=== PATIENT | male | born 1955 | race Caucasian/White ===

== ENCOUNTER 2020-10-01 08:05 | Outpatient (CLI) | payer MEDICARE, SELFPAY ==
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
== END 2020-10-01 08:06 | disposition home or self-care (01) ==
LOC: ANHIMG 08:08
PROVIDERS: PCP Family Medicine; Visit Provider Internal Medicine Cardiovascular Disease
DX: I77.89 Other specified disorders of arteries and arterioles (principal)
CPT/HCPCS: 71250

== ENCOUNTER 2022-01-22 08:54 | Outpatient (CLI) | payer MEDICARE, SELFPAY ==
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
== END 2022-01-22 08:55 | disposition home or self-care (01) ==
PROVIDERS: PCP Family Medicine; Visit Provider Internal Medicine Cardiovascular Disease
DX: I77.89 Other specified disorders of arteries and arterioles (principal)
CPT/HCPCS: 71250

== ENCOUNTER 2022-04-11 15:30 | Emergency (ER) | payer MEDICARE, SELFPAY ==
[2022-04-11] VITALS (20 sets, daily range): BP systolic 113–140; BP diastolic 69–86; PULSE 78–87; RESP 10–19; TEMP 36.6; O2SAT 97–100
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
--- NOTE | 2022-04-11 16:25 | ECG_ITS ---
Measurements Intervals [place] Rate: 79 P: 72 MS: 153 QRS: 117 QRSD: 174 T: 76 QT: 411 QTc: 473 Interpretive Statements ATRIAL SENSE- ELECTRONIC VENTRICULAR PACEMAKER NO FURTHER INTERPRETATION IS POSSIBLE ATYPICAL ECG NO PREVIOUS ECG AVAILABLE FOR COMPARISON Electronically Signed On 04-11-2022 19:35:56 CDT by Antwan Simpson D.O.
[2022-04-11 16:45] LABS: Basophils Percent Auto 0.2 % (0.2-1.2); Eosinophils Absolute Auto 0.1 K/mm3 (0-0.3); Hematocrit 40.4 % (42.0-52.0); Hemoglobin 13.8 g/dL (14.0-18.0); Immature Granulocyte Absolute 0.01 K/mm3 (0.00-0.031); Immature Granulocyte Percent A 0.2 % (0-0.5); Immature Platelet Fraction Pct 9.6 % (0.9-11.2); Lymphocytes Absolute Auto 1.17 K/mm3 (0.9-3.2); Lymphocytes Percent Auto 25.8 % (18.3-44.2); Mean Corpuscular HGB Conc 34.2 g/dl (32-36); Mean Corpuscular Hemoglobin 29.4 pg (26-34); Mean Platelet Volume 11.8 fl (7.4-10.4); Monocytes Absolute Auto 0.4 K/mm3 (0.1-0.6); Monocytes Percent Auto 9.1 % (2.6-8.5); Neutrophils Absolute Auto 2.8 K/mm3 (1.3-6.7); Neutrophils Percent Auto 62.7 % (45.5-73.1); Platelet Count Result 119 k/mm3 (150-375); Red Cell Distribution Width 13.4 % (11.5-14.5); White Blood Count 4.5 K/mm3 (4.5-10.0)
[2022-04-11 16:52] LABS: Prothrombin Time 12.9 Seconds (11.1-14.7)
[2022-04-11 16:55] LABS: Alanine Aminotransferase 22 U/L (6-50); Albumin Level 4.2 g/dL (3.5-5.1); Alkaline Phosphatase 61 U/L (38-126); Anion Gap 8 mmol/L (8-16); Aspartate Amino Transferase 23 U/L (17-59); Bilirubin,Total 0.5 mg/dL (0.2-1.3); Blood Urea Nitrogen 15 mg/dL (9-20); Calcium 9.2 mg/dL (8.4-10.2); Carbon Dioxide 26 mmol/L (22-30); Chloride 103 mmol/L (98-107); Estimated CRCL calculation 71 ml/min; Estimated Glomerular Filt Rate > 60; Glucose 191 mg/dL (65-110); Potassium 4.3 mmol/L (3.4-5.0); Sodium 137 mmol/L (137-145)
[2022-04-11 17:06] LABS: Troponin I < 0.012 ng/mL (0.000-0.034)
--- NOTE | 2022-04-11 17:30 | ED.GENADULT ---
HPI - General Adult General Chief complaint: Unspecified <Brenna Domígnuez PA-C - Last Filed: 04/11/22 19:45> Stated complaint: defibrillator went off today at 1500 <Brenna Domínguez PA-C - Last Filed: 04/11/22 19:45> Time Seen by Provider: 04/11/22 17:18 <Brenna Domínguez PA-C - Last Filed: 04/11/22 19:45> Source: patient <MIKE Morrison Last Filed: 04/11/22 19:45> Mode of arrival: ambulatory <MIKE Morrison Last Filed: 04/11/22 19:45> Limitations: no limitations <MIKE Morrison Last Filed: 04/11/22 19:45> History of Present Illness HPI narrative: This is a 67-year-old male that presents to the emergency department for problems with his pacemaker. Reports at 3 this afternoon he heard his pacemaker go off. He did not feel a shock. He was not having any symptoms at this time. He had another occurrence at 4:00 this afternoon. He has not had any further alarming since. He denies any chest pain, palpitations or shortness of breath. 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 Reports he is due to have his battery exchanged before August. <Brenna Domínguez PA-C - Last Filed: 04/11/22 19:45> Related Data Allergies/adverse reactions: Allergies Allergy/AdvReac Type Severity Reaction Status Date / Time Penicillins Allergy Intermediate Verified 04/17/17 10:31 <Brenna Domínguez PA-C - Last Filed: 04/11/22 19:45> Review of Systems Review of Systems: CONSTITUTIONAL: Denies fever CARDIOVASCULAR: Denies chest pain, palpitations, or edema. RESPIRATORY: Denies dyspnea. <MIKE Morrison Last Filed: 04/11/22 19:45> All systems reviewed & are unremarkable except as noted in HPI and below <Brenna Domínguez PA-C - Last Filed: 04/11/22 19:45> [facility] Past Medical History Medical History: Medical History (Updated 04/13/22 @ 00:01 by Background Daemon) Diabetes Essential (primary) hypertension History of neuropathy Hyperlipidemia (04/17/17) <Brenna Domínguez PA-C - Last Filed: 04/11/22 19:45> Family History Family History: Family History (Updated 05/26/18 @ 00:00 by CONVUSER A) Father Family history of coronary artery disease <Brenna Domínguez PA-C - Last Filed: 04/11/22 19:45> Social History Social History: Social History Smoking status: Never smoker Alcohol intake: current <Brenna Domínguez PA-C - Last Filed: 04/11/22 19:45> Exam Narrative: GENERAL: Well-appearing, well-nourished, and in no acute distress. HEAD: Normocephalic, atraumatic. EYES: EOMI. CHEST: Clear to auscultation. No respiratory distress. No wheezes rales or rhonchi HEART: Regular rate and rhythm. No murmur heard. Normal peripheral pulses. EXTREMITIES: Normal range of motion. No edema. SKIN: Warm, dry, no rash. NEURO: No focal deficits. Alert and oriented x3. PSYCH: Normal mood and affect <Brenna Domínguez PA-C - Last Filed: 04/11/22 19:45> Course Course Emergency Course: Spoke with [employer] charter representative who reports patient had 1 anomalous lead impedance. Otherwise his trends are good. He still has 5 months left on his battery. Report will be sent to his assistant editor <Brenna Domínguez PA-C - Last Filed: 04/11/22 19:45> WELFARE ADVISER/PA Physician Supervision For this patient encounter, I reviewed the WELFARE ADVISER or PA documentation, treatment plan, and medical decision making. I was available for consultation as needed. <Molly Cortes MD - Last Filed: 04/25/22 16:11> Consultations Consultation #1: Spoke with Dr. Funes about patient and workup. Patient is stable to follow up in clinic <Brenna Domínguez PA-C - Last Filed: 04/11/22 19:45> Date: 04/11/22 <Brenna Domínguez PA-C - Last Filed: 04/11/22 19:45> Time: 19:41 <Brenna Domínguez PA-C - Last Filed: 04/11/22 19:45> Vital Signs Vital signs: Vital Signs Temperature 98 F 04/11/22 15:39 Pulse Rate 78 04/11/22 15:39 Respiratory Rate 14 04/11/22 1
--- NOTE | 2022-04-11 18:47 | PC.NURSE ---
PPM interrogated as ordered.
--- NOTE | 2022-04-11 19:29 | PC.NURSE ---
Patient report given to ANNY Coburn. All questions answered and care of patient transferred.
== END 2022-04-11 19:46 | disposition home or self-care (01) ==
PROVIDERS: Emergency Medicine; Emergency Provider Emergency Medicine; PCP Family Medicine
DX: T82.9XXA Unspecified complication of cardiac and vascular prosthetic device, implant and graft, initial encounter (principal); I10 Essential (primary) hypertension; E11.40 Type 2 diabetes mellitus with diabetic neuropathy, unspecified; E78.5 Hyperlipidemia, unspecified
CPT/HCPCS: 36415; 71046; 80053; 84484; 85025; 85055; 85610; 85730; 93005; 99284

== ENCOUNTER 2022-09-10 09:23 | Outpatient (CLI) | payer MEDICARE, SELFPAY ==
--- NOTE | ~2022-09-10 | US_ITS ---
EXAMINATION: US aorta [facility] DATE: 09/10/2022 12:25 INDICATION: TECHNIQUE: Grayscale, color Doppler, and pulsed Doppler images of the aorta and common iliac arteries were obtained. COMPARISON: None. FINDINGS: The aorta measures 2.8 cm proximally, 2.3 cm in the midportion, and 2.0 cm distally. The right common iliac artery 1.2. The left common iliac artery 1.2. IMPRESSION: 1. No current sonographic evidence of abdominal aortic aneurysm. 2. Mild proximal aortic ectasia. Consider follow-up abdominal aortic ultrasound in 5 years. Reviewed, dictated and finalized at location K. 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
== END 2022-09-10 09:24 | disposition home or self-care (01) ==
PROVIDERS: PCP Family Medicine; Visit Provider Family Medicine
DX: Z13.6 Encounter for screening for cardiovascular disorders (principal); I77.819 Aortic ectasia, unspecified site
CPT/HCPCS: 76706

== ENCOUNTER 2022-10-14 01:25 | Day surgery (SDC) | payer MEDICARE, SELFPAY ==
[2022-10-13 14:59] VITALS: BMI 31.8
--- NOTE | 2022-10-14 11:06 | PM.IMHP ---
H&P: HPI History of Present Illness Date/Time: 10/14/22 11:06 Chief Complaint: Bi V ICD at elective replacement, here for generator change Narrative: Mr. 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 Although his initial ejection fraction was 28%, he has had improvement and recent ejection fraction was 40%. He has had no ICD therapies applied. The generator is on advisory. Right atrial lead in place insisted client in 2018 is been stable since then running 95-114 Ohms. The right atrial sensing is appropriate any rarely paces in the right atrium. I have elected to leave the lead intact and to simply do a generator change. Review of Systems Review of Systems: Patient is feeling well today although he has noted some increased fatigue over the last few weeks. Some chronic MENDES and chronic edema. No chest pain or stomach problems. No fevers or signs of infection. Constitutional: Constitutional: Denies fever(s) Cardiovascular: Cardiovascular: Denies chest pain, Denies pedal edema, Denies lightheadedness and Denies dyspnea Respiratory: Respiratory: Denies chest congestion and Denies dyspnea Gastrointestinal: Gastrointestinal: Denies abdominal pain and Denies hematochezia Musculoskeletal: Musculoskeletal: Reports no additional musculoskeletal complaints Integumentary/Breasts: Skin/Breast: Reports system reviewed and no additional complaints, except as docu Neurologic: Reports system reviewed and no additional complaints, except as documented, Denies behavioral changes and Denies confusion Psychiatric: Psychiatric: Denies behavioral changes and Denies confusion [facility] Past Medical History Medical History Biventricular ICD (implantable cardioverter-defibrillator) in place [employer], acute initial device 2009, upgrade in 2014. Chronic decreased left atrial impedance CKD (chronic kidney disease) Diabetes Essential (primary) hypertension History of neuropathy Hyperlipidemia (04/17/17) Nonischemic cardiomyopathy 2009, ejection fraction was 28%. Improved to 40% 2020. KAMI (obstructive sleep apnea) Family History Family History Father Family history of coronary artery disease Social History Social History Smoking status: Former smoker Tobacco type: cigars Smokeless tobacco user: chewing tobacco Additional smoking assessment comments: occassional cigar, every now Alcohol intake: former Substance use: never Substance use type: does not use Living arrangements: with family Spiritual care concerns: No Meds Home Medications and Allergies Home Medications Medication Instructions Recorded Confirmed Type aspirin 81 mg tablet 81 mg PO DAILY 10/13/22 10/14/22 History cholecalciferol (vitamin D3) 250 10,000 unit PO DAILY 10/13/22 10/14/22 History mcg (10,000 unit) capsule furosemide 20 mg tablet 20 mg PO DAILY 10/13/22 10/13/22 History gabapentin 300 mg capsule 300 mg PO BID 10/13/22 10/14/22 History glipizide 5 mg tablet 5 mg PO BID 10/13/22 10/13/22 History loratadine 10 mg tablet 10 mg PO DAILY 10/13/22 10/14/22 History metformin 1,000 mg tablet 1,000 mg PO BID 10/13/22 10/13/22 History metoprolol succinate 100 mg 100 mg PO DAILY 10/13/22 10/14/22 History tablet,extended release 24 hr mirtazapine 15 mg tablet 15 mg PO HS 10/13/22 10/14/22 History montelukast 10 mg tablet 10 mg PO HS 10/13/22 10/14/22 History naproxen 500 mg tablet 500 mg PO BID PRN Neuropathy 10/13/22 10/14/22 History niacin 500 mg tablet 500 mg PO DAILY 10/13/22 10/14/22 History omega 8-wpb-yuu-fish oil 300 1 cap PO DAILY 10/13/22 10/14/22 History mg-1,000 mg capsule (Fish Oil) omeprazole 40 mg capsule,delayed 40 mg PO DAILY 10/13/22 10/14/22 Histo
[2022-10-14 11:07] VITALS: BMI 30.8
[2022-10-14 11:08] VITALS: BP 140/81; PULSE 72; RESP 16; TEMP 36.8; O2SAT 99
--- NOTE | 2022-10-14 11:14 | SUR.PREOP ---
DR. REYES TO BEDSIDE TO SPEAK W/ PT, AND DAUGHTER.
[2022-10-14 11:16] LABS: Basophils Percent Auto 0.2 % (0.2-1.2); Eosinophils Absolute Auto 0.1 K/mm3 (0-0.3); Eosinophils Percent Auto 1.4 % (0-4.4); Hematocrit 43.3 % (42.0-52.0); Hemoglobin 14.5 g/dL (14.0-18.0); Immature Granulocyte Absolute 0.01 K/mm3 (0.00-0.031); Immature Granulocyte Percent A 0.2 % (0-0.5); Immature Platelet Fraction Pct 7.8 % (0.9-11.2); Lymphocytes Absolute Auto 0.85 K/mm3 (0.9-3.2); Lymphocytes Percent Auto 19.8 % (18.3-44.2); Mean Corpuscular HGB Conc 33.5 g/dl (32-36); Mean Corpuscular Hemoglobin 28.4 pg (26-34); Mean Corpuscular Volume 84.9 fl (80-100); Mean Platelet Volume 11.9 fl (7.4-10.4); Monocytes Absolute Auto 0.4 K/mm3 (0.1-0.6); Monocytes Percent Auto 8.1 % (2.6-8.5); Neutrophils Percent Auto 70.3 % (45.5-73.1); Platelet Count Result 123 k/mm3 (150-375); Red Cell Distribution Width 13.2 % (11.5-14.5); White Blood Count 4.3 K/mm3 (4.5-10.0)
[2022-10-14 11:24] LABS: INR 1.1; Prothrombin Time 13.9 Seconds (11.1-14.7)
--- NOTE | 2022-10-14 11:25 | SUR.PREOP ---
chest prep to left upper chest with chlorhexidine wipes completed. tolerated well. skin warm, dry, intact, pink.
[2022-10-14 11:28] LABS: Anion Gap 8 mmol/L (8-16); Blood Urea Nitrogen 21 mg/dL (9-20); Calcium 8.9 mg/dL (8.4-10.2); Carbon Dioxide 25 mmol/L (22-30); Chloride 106 mmol/L (98-107); Estimated CRCL calculation 72 ml/min; Estimated Glomerular Filt Rate > 60; Glucose 241 mg/dL (65-110); Potassium 4.7 mmol/L (3.4-5.0); Sodium 139 mmol/L (137-145)
--- NOTE | 2022-10-14 11:31 | WPDMODSED ---
Moderate Sedation Note-Pt Data Patient Data Diagnosis: Bi V ICD pulse generator at elective replacement interval, on advisory Present Complaint: Mr. 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 Although his initial ejection fraction was 28%, he has had improvement and recent ejection fraction was 40%. He has had no ICD therapies applied. The generator is on advisory. Right atrial lead in place insisted client in 2018 is been stable since then running 95-114 Ohms. The right atrial sensing is appropriate any rarely paces in the right atrium. I have elected to leave the lead intact and to simply do a generator change. Procedure to be performed/Plan: Conscious sedation generator change Possible lead revision Allergies Allergy/AdvReac Type Severity Reaction Status Date / Time Penicillins Allergy Intermediate Unknown Verified 10/14/22 10:57 Home Medications Medication Instructions Recorded Confirmed Type aspirin 81 mg tablet 81 mg PO DAILY 10/13/22 10/14/22 History cholecalciferol (vitamin D3) 250 10,000 unit PO DAILY 10/13/22 10/14/22 History mcg (10,000 unit) capsule furosemide 20 mg tablet 20 mg PO DAILY 10/13/22 10/13/22 History gabapentin 300 mg capsule 300 mg PO BID 10/13/22 10/14/22 History glipizide 5 mg tablet 5 mg PO BID 10/13/22 10/13/22 History loratadine 10 mg tablet 10 mg PO DAILY 10/13/22 10/14/22 History metformin 1,000 mg tablet 1,000 mg PO BID 10/13/22 10/13/22 History metoprolol succinate 100 mg 100 mg PO DAILY 10/13/22 10/14/22 History tablet,extended release 24 hr mirtazapine 15 mg tablet 15 mg PO HS 10/13/22 10/14/22 History montelukast 10 mg tablet 10 mg PO HS 10/13/22 10/14/22 History naproxen 500 mg tablet 500 mg PO BID PRN Neuropathy 10/13/22 10/14/22 History niacin 500 mg tablet 500 mg PO DAILY 10/13/22 10/14/22 History omega 2-onp-ksj-fish oil 300 1 cap PO DAILY 10/13/22 10/14/22 History mg-1,000 mg capsule (Fish Oil) omeprazole 40 mg capsule,delayed 40 mg PO DAILY 10/13/22 10/14/22 History release sacubitril 24 mg-valsartan 26 mg 1 tablet PO BID 10/13/22 10/14/22 History tablet simvastatin 20 mg tablet 20 mg PO DAILY 10/13/22 10/14/22 History spironolactone 25 mg tablet 25 mg PO DAILY 10/13/22 10/13/22 History Sedation/Anesthesia: No previous sedation/anesthesia problems (including family history). [facility] Past Medical History Medical History Biventricular ICD (implantable cardioverter-defibrillator) in place [employer], acute initial device 2009, upgrade in 2014. Chronic decreased left atrial impedance CKD (chronic kidney disease) Diabetes Essential (primary) hypertension History of neuropathy Hyperlipidemia (04/17/17) Nonischemic cardiomyopathy 2009, ejection fraction was 28%. Improved to 40% 2020. KAMI (obstructive sleep apnea) Family History Family History Father Family history of coronary artery disease Social History Social History Smoking status: Former smoker Tobacco type: cigars Smokeless tobacco user: chewing tobacco Additional smoking assessment comments: occassional cigar, every now Alcohol intake: former Substance use: never Substance use type: does not use Living arrangements: with family Spiritual care concerns: No Mod Sed Physical Exam Physical Exam Pre Procedural Exam: Normal: Appearance, Eyes, Ears, Nose, Neck, Throat, Heart Size, Heart Rate, Heart Rhythm, Neuro Exam, Abdomen, Extremities and Skin ( incision is well healed) and Variation: Airway ( edentulous) and Lungs ( few rales in the bases) Hours since solid foods: 12 Hours since liquid intake: 12 Mallampati Classification: class IV Internal Medicine - PN: Obj Da Vital Signs Vital Signs:
--- NOTE | 2022-10-14 13:34 | PM.OP ---
Procedure Note - Brief Procedure Note - Brief Date of procedure: 10/14/22 Pre-op diagnosis: CLARY Post-op diagnosis: Other (Post generator change) Description of procedure: uneventful generator change Surgeon: Kena Timmons MD Complications: No immediate complications Condition: Stable Disposition: Observation
[2022-10-14 13:45] VITALS: BP 130/80; PULSE 82; RESP 29; O2SAT 94
--- NOTE | 2022-10-14 13:54 | P.OP_ITS ---
Procedure Note - Detailed Date of Procedure 10/14/22 Pre-op Diagnosis CLARY Post-op Diagnosis Other ( Status post generator change) Procedure Performed PROCEDURE: Conscious sedation Generator change Surgeon Kena Timmons MD Anesthesia Local (with conscious sedation) Description of Procedure UNDERLYING RHYTHM: NSR CONSCIOUS SEDATION: Assessment: The patient has no history of anesthesia problems. The oropharynx is clear. The patient was deemed to be a good candidate for conscious sedation. The patient had continuous hemodynamic and oximetric monitoring during the procedure. Start time: 1239 Completion time: 13 30 Total conscious sedation time: 51 minutes Medications: Versed 2 mg, fentanyl 100 mcg IV push Trained observer: Fiona Merida RN Outcome: The patient tolerated the procedure well with no complications. PROCEDURE: After informed consent, the patient is brought to the cardiac cath lab technologist and the left prepectoral area was prepped and draped in usual fashion. The patient was given a prophylactic antibiotic intravenously with vancomycin 2 g IV piggyback.. After conscious sedation as described above, the area was anesthetized with 1% lidocaine. A skin incision is made with the Plasma Blade and carried down to the pacing capsule which was also incised. Hemostasis is obtained using the Plasma Blade. The lead/s was/were freed from the underlying capsule and inspected and were found to be intact. The pulse generator was delivered from the pocket. The lead/s was/were disconnected from the existing device and Appear intact, thanreconnected to the new device. A gentle tug could not remove it/them. The device and lead/s was/were interrogated and found to be functioning appropriately. The area was copiously irrigated with antibiotic-containing solution. The device was placed in a TyRx antibiotic pouch, and replaced in the pocket. The subcutaneous tissues were closed in a two-layer fashion with interrupted 2 0 Vicryl sutures and the skin was closed in a continuous fashion using 4 0 Vicryl. Allthough hemostasis appeared good, the patient had some oozing. Local pressure was a applied over the site which seemed to stop the oozing. The area was cleansed, an Aquacel dressing and pressure dressing applied. The patient tolerated the procedure well with no complications. Estimated blood loss was negligible. THRESHOLD INFORMATION: Right atrial lead: P-wave 2.8 volts, impedance 57 Ohms, threshold 1.5 volts at 1.5 milliseconds Right ventricular lead: R-wave sensing 5.8 mV, impedance 361 Ohms, , threshold 0.75 at 0.4 milliseconds HVB: impedance 65 Ohms HVX impedance 93 Ohms Left ventricular lead: Threshold 1.0 volts at 1.0 milliseconds PROGRAMMED PARAMETERS: DDD 60-130, and VFib zone 200 millisecond intervals Implants DEVICE INFORMATION: New pulse generator: [employer] model [id number], serial [id number] [id number] Existing right atrial lead: [employer] model 5076-52, serial [id number] [id number] Existing right ventricular lead: [employer] model 229571, serial [id number] [id number] Existing left ventricular lead: [employer] model 661416, serial [id number] [id number] Explanted pulse generator: [employer] model [id number], serialBLF [id number] Estimated Blood Loss 10 (cc's) Complications No immediate complications Condition Stable Disposition Observation
[2022-10-14 14:00] VITALS: BP 130/69; PULSE 76; RESP 13; O2SAT 96
[2022-10-14 14:16] VITALS: BP 123/87; PULSE 75; RESP 12; O2SAT 97
[2022-10-14 15:00] VITALS: BP 129/87; PULSE 80; RESP 17
== END 2022-10-14 15:25 | disposition home or self-care (01) ==
PROVIDERS: PCP Family Medicine; Visit Provider Internal Medicine Cardiovascular Disease
PROC: 0JPT0PZ Removal of Cardiac Rhythm Related Device from Trunk Subcutaneous Tissue and Fascia, Open Approach (ICD-10-PCS; CPT 33264; principal; 2022-10-14 12:00)
DX: Z45.02 Encounter for adjustment and management of automatic implantable cardiac defibrillator (principal); I42.0 Dilated cardiomyopathy; I12.9 Hypertensive chronic kidney disease with stage 1 through stage 4 chronic kidney disease, or unspecified chronic kidney disease; E11.22 Type 2 diabetes mellitus with diabetic chronic kidney disease; N18.9 Chronic kidney disease, unspecified; E78.5 Hyperlipidemia, unspecified; G47.33 Obstructive sleep apnea (adult) (pediatric); E11.40 Type 2 diabetes mellitus with diabetic neuropathy, unspecified; Z79.82 Long term (current) use of aspirin; Z79.84 Long term (current) use of oral hypoglycemic drugs; F17.220 Nicotine dependence, chewing tobacco, uncomplicated
CPT/HCPCS: 33264; 36415; 80048; 85025; 85055; 85610; C1882; J2250; J3010; J3370; J7040

== ENCOUNTER 2023-08-05 12:08 | Outpatient (CLI) | payer MEDICARE, SELFPAY ==
--- NOTE | ~2023-08-05 | CT_ITS ---
EXAMINATION:CT diagnostic chest wo con DATE: 08/05/2023 12:25 INDICATION: Aortic root enlargement. TECHNIQUE: Computed tomography (CT) of the chest was performed without intravenous contrast. Automate d exposure control and iterative reconstruction technique were employed. The dose-length product (DLP ) was 916.59 mGy-cm. COMPARISON: Chest CT 01/22/2022 FINDINGS: The lungs demonstrate mild atelectasis. No pleural effusion. There are shrapnel in right kevin ng and right chest wall. There is left ventricular enlargement of the heart. There is a left chest pa cer with leads in right atrium, right ventricle, and coronary sinus. No pericardial effusion. The aor ta measures 4.5 cm at the sinuses of Valsalva, 3.6 cm at the sinotubular junction, 4.2 cm in the mid descending aorta, 2.9 cm at the aortic isthmus, and 2.9 cm in the mid descending aorta. There is suraj re cervical and thoracic spondylosis. IMPRESSION: 1. Stable ectasia of ascending aorta measuring 4.5 cm at the sinuses of Valsalva. Reviewed, dictated and finalized at location E. ASSESSOR IMPRESSION: 1. Stable ectasia of ascending aorta measuring 4.5 cm at the sinuses of Valsalv a.
== END 2023-08-05 12:09 | disposition home or self-care (01) ==
PROVIDERS: PCP Family Medicine; Visit Provider Internal Medicine Cardiovascular Disease
DX: I77.89 Other specified disorders of arteries and arterioles (principal)
CPT/HCPCS: 71250

== ENCOUNTER 2023-10-20 09:38 | Outpatient (CLI) | payer MEDICARE, SELFPAY ==
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
== END 2023-10-20 09:39 ==
PROVIDERS: PCP Internal Medicine Cardiovascular Disease; Visit Provider Internal Medicine Cardiovascular Disease
DX: I77.89 Other specified disorders of arteries and arterioles (principal)
CPT/HCPCS: 99199; 71250

== ENCOUNTER 2023-10-21 09:26 | Outpatient (CLI) | payer MEDICARE, SELFPAY ==
--- NOTE | ~2023-10-21 | CT_ITS ---
EXAMINATION: CT sinus wo con DATE: 10/21/2023 09:48 INDICATION: Headache. Sinus pressure. Subacute pansinusitis. TECHNIQUE: Computed tomography (CT) of the paranasal sinuses was performed without intravenous contra st. Iterative reconstruction technique was employed. The dose-length product was 272.05 mGy-cm. COMPARISON: None FINDINGS: There is mild mucosal thickening in the frontal sinuses. There is moderate mucosal thickeni ng in the right ethmoid sinuses and extensive mucosal thickening in the left ethmoid sinuses. There i s mucosal thickening in the sphenoid sinuses including complete opacification of left sphenoid sinus. There is thickening and sclerosis of the bentley of left sphenoid sinus. There is mild mucosal thicken ing in the maxillary sinuses. There is leftward deviation of the nasal septum with a left lateral spu r. There is narrowing of right ostiomeatal unit. Left ostiomeatal unit is occluded at the infundibulu m. There is freddie bullosa involving right middle turbinate. In the anterior wall of right maxillary sinus, there is a 6 mm nonaggressive lytic lesion with calcified matrix, likely benign. There are tra ce mastoid effusions. IMPRESSION: 1. Chronic sinusitis. 2. Leftward deviation of the nasal septum. Reviewed, dictated and finalized at location A.
== END 2023-10-21 09:27 ==
LOC: MICIMG 09:27
PROVIDERS: PCP Family Medicine; Visit Provider Family Medicine
DX: J01.40 Acute pansinusitis, unspecified (principal); G44.221 Chronic tension-type headache, intractable; J34.2 Deviated nasal septum
CPT/HCPCS: 70486

== ENCOUNTER 2023-10-30 13:10 | Emergency (ER) | payer MEDICARE, SELFPAY ==
--- NOTE | ~2023-10-30 | CT_ITS ---
EXAMINATION: CT brain wo/w con INDICATION: Headache, chronic sinusitis COMPARISON: 10/21/2023 TECHNIQUE: Computed tomographic images of the head were obtained prior to then following the administ ration of 100 cc of Omnipaque 350 intravenous contrast. The dose-length product (DLP) was 1210.67 mGy -cm. The mA was adjusted according to patient size. Iterative reconstruction technique was employed. FINDINGS: No acute intraparenchymal hemorrhage. No evidence of mass lesion. No evidence of acute infa rction. There is a tiny lacunar infarct of the left caudate. There is mild periventricular and subcor tical hypodensity probably related to small vessel ischemic disease. There is mild prominence of the sulci and ventricles related to cerebral atrophy. Intracranial calcified cerebral atherosclerosis is noted. No extra-axial collections. No mass effect or midline shift. The orbits and soft tissues are u nremarkable. No abnormal enhancement is present after contrast administration. Findings of the visual ized paranasal sinuses are not significantly changed from the recent sinus CT. Trace mastoid effusion s are noted. IMPRESSION: 1. No acute intracranial abnormality. 2. Age related findings. 3. Findings of the visualized paranasal sinuses not significantly changed from the recent sinus CT. N o intracranial extension of sinus disease. Reviewed, dictated and finalized at location F. IMPRESSION: 1. No acute intracranial abnormality. 2. Age related findings. 3. Findings of the visualized paranasal sinuses not significantly changed from the recent sinus CT. No intracranial extension of sinus disease.
[2023-10-30 13:17] VITALS: BP 114/75; PULSE 78; RESP 20; TEMP 36.7; O2SAT 100
[2023-10-30 15:43] LABS: Basophils Percent Auto 0.1 % (0.2-1.2); Eosinophils Absolute Auto 0.1 K/mm3 (0-0.3); Eosinophils Percent Auto 0.5 % (0-4.4); Hematocrit 35.6 % (42.0-52.0); Hemoglobin 11.3 g/dL (14.0-18.0); Immature Granulocyte Absolute 0.06 K/mm3 (0.00-0.031); Immature Granulocyte Percent A 0.5 % (0-0.5); Lymphocytes Absolute Auto 1.19 K/mm3 (0.9-3.2); Lymphocytes Percent Auto 10.8 % (18.3-44.2); Mean Corpuscular HGB Conc 31.7 g/dl (32-36); Mean Corpuscular Hemoglobin 28.2 pg (26-34); Mean Corpuscular Volume 88.8 fl (80-100); Mean Platelet Volume 11.3 fl (7.4-10.4); Monocytes Absolute Auto 0.6 K/mm3 (0.1-0.6); Monocytes Percent Auto 5.5 % (2.6-8.5); Neutrophils Absolute Auto 9.1 K/mm3 (1.3-6.7); Neutrophils Percent Auto 82.6 % (45.5-73.1); Platelet Count Result 171 k/mm3 (150-375); Red Blood Count 4.01 M/mm3 (4.6-6.20); Red Cell Distribution Width 15.5 % (11.5-14.5)
[2023-10-30 15:46] LABS: Appearance Urine Clear (Clear); Bacteria Urine None Seen /hpf; Bilirubin Urine Negative (Negative); Blood Urine Negative (Negative); Color Urine Yellow (Yellow); Glucose Urine UA 3+ mg/dL (Negative); Ketones Urine Negative (Negative); Leukocyte Esterase Ur Negative LEU/UL (Negative); Nitrate Urine Negative (Negative); Non Pathogenic Casts 0-2; Protein Urine 2+ mg/dL (Negative); RBC Urine 0-2 /hpf (0-2); Squamous Epithelial Cell Urine None Seen /hpf (Few); Urobilinogen Urine 0.2 mg/dL (<2.0); WBC Urine 0-5 /hpf (0-3)
[2023-10-30 15:48] LABS: Specific Grav Ur 1.039 (1.001-1.035)
[2023-10-30 15:49] LABS: Add Urine Microscopic? YES
[2023-10-30 15:55] LABS: Alanine Aminotransferase 42 U/L (6-50); Albumin Level 3.2 g/dL (3.5-5.1); Alkaline Phosphatase 119 U/L (38-126); Anion Gap 5 mmol/L (8-16); Aspartate Amino Transferase 37 U/L (17-59); Bilirubin,Total 0.4 mg/dL (0.2-1.3); Blood Urea Nitrogen 33 mg/dL (9-20); Calcium 8.8 mg/dL (8.4-10.2); Carbon Dioxide 19 mmol/L (22-30); Chloride 112 mmol/L (98-107); Estimated CRCL calculation 42 ml/min; Estimated Glomerular Filt Rate 47; Glucose 163 mg/dL (65-110); Potassium 5.2 mmol/L (3.4-5.0); Sodium 136 mmol/L (137-145)
--- NOTE | 2023-10-30 16:05 | PC.NURSE ---
pt angry and agitated, threatening verbally to staff. pt reminded that this behavior is not accepted here at this facility. explained delay in providers rounding to room. again agitated, telling staff to leave room if unable to fix his problems.
[2023-10-30 16:20] LABS: Influenza A QL RT-PCR Negative (Negative); Influenza B QL RT-PCR Negative (Negative); RSV RNA, RT-PCR Negative (Negative); SARS-CoV-2 RNA PCR Negative (Negative)
[2023-10-30 16:31] VITALS: BP 125/95; PULSE 72; RESP 16; TEMP 36.7; O2SAT 96
[2023-10-30 17:30] VITALS: BP 118/70; PULSE 76; RESP 16; TEMP 36.6; O2SAT 97
--- NOTE | 2023-10-30 17:38 | ED.HA ---
HPI - Headache General Chief Complaint: Headache Stated Complaint: SAUCEDA Time Seen by Provider: 10/30/23 16:02 Source: patient Mode of arrival: ambulatory Limitations: no limitations History of Present Illness HPI Narrative: This is a 68 year old male that presents to the ER for headache. Worsening over the last couple of days. Reports he has been struggling with headaches over the last month. Seen by ENT for this and diagnosed with chronic sinusitis. Started on prednisone and clindamycin. He has been taking these with little relief. He also has been doing sinus rinses, which he believes has worsened his headaches. He has been taking Tylenol and ibuprofen with little relief. Denies fevers, visual changes, vomiting, numbness, or focal weakness. Related Data Home Medications Medication Instructions Recorded Confirmed aspirin 81 mg tablet 81 mg PO DAILY 10/13/22 10/28/23 cholecalciferol (vitamin D3) 250 10,000 unit PO DAILY 10/13/22 10/28/23 mcg (10,000 unit) capsule furosemide 20 mg tablet 20 mg PO DAILY 10/13/22 10/28/23 gabapentin 300 mg capsule 300 mg PO BID 10/13/22 10/28/23 glipizide 5 mg tablet 5 mg PO BID 10/13/22 10/28/23 loratadine 10 mg tablet 10 mg PO DAILY 10/13/22 10/28/23 metoprolol succinate 100 mg 100 mg PO DAILY 10/13/22 10/28/23 tablet,extended release 24 hr mirtazapine 15 mg tablet 15 mg PO HS 10/13/22 10/28/23 montelukast 10 mg tablet 10 mg PO HS 10/13/22 10/28/23 naproxen 500 mg tablet 500 mg PO BID PRN Neuropathy 10/13/22 10/28/23 niacin 500 mg tablet 500 mg PO DAILY 10/13/22 10/28/23 omega 1-hwf-flf-fish oil 300 1 cap PO DAILY 10/13/22 10/28/23 mg-1,000 mg capsule (Fish Oil) omeprazole 40 mg capsule,delayed 40 mg PO DAILY 10/13/22 10/28/23 release sacubitril 24 mg-valsartan 26 mg 1 tablet PO BID 10/13/22 10/28/23 tablet simvastatin 20 mg tablet 20 mg PO DAILY 10/13/22 10/28/23 spironolactone 25 mg tablet 25 mg PO DAILY 10/13/22 10/28/23 Allergies Allergy/AdvReac Type Severity Reaction Status Date / Time Penicillins Allergy Intermediate Unknown Verified 10/30/23 13:23 Review of Systems Review of Systems: CONSTITUTIONAL: Denies fever EYES: Denies visual changes GASTROINTESTINAL: Denies vomiting NEUROLOGIC: Reports headache. Denies numbness, or weakness. All systems reviewed & are unremarkable except as noted in HPI and below PMFSH Past Medical History Medical History Biventricular ICD (implantable cardioverter-defibrillator) in place Medtr[employer], acute initial device 2009, upgrade in 2014. Chronic decreased left atrial impedance CKD (chronic kidney disease) Diabetes Essential (primary) hypertension History of neuropathy Hyperlipidemia (04/17/17) Nonischemic cardiomyopathy 2009, ejection fraction was 28%. Improved to 40% 2020. KAMI (obstructive sleep apnea) Family History Family History Father Family history of coronary artery disease Cancer Heart disease Social History Social History Smoking status: Former smoker Tobacco type: cigars Smokeless tobacco user: chewing tobacco Additional smoking assessment comments: occassional cigar, every now Alcohol intake: former Substance use: never Substance use type: does not use Living arrangements: with family Spiritual care concerns: No Exam Narrative: GENERAL: Well-appearing, well-nourished, and in no acute distress. HEAD: Normocephalic, atraumatic. EYES: PERRLA and EOMI. ENT: Nares clear, no rhinorrhea or epistaxis. Mucous membranes moist. Oropharynx without tonsillar hypertrophy exudate or other lesions. Bilateral TMs pearly porras non-bulging NECK: Supple. No adenopathy or masses. CHEST: Clear to auscultation. No respiratory distress. No wheezes rales or rhonchi HEART: Regular rate and rhythm. No murmur heard. Normal peripheral pulses. ABDOM
[2023-10-30] MEDS: SODIUM CHLORIDE 0.9% IV 500 ML 999 ML IV CONT (18:00)
[2023-10-30] MEDS: KETOROLAC 15 MG/ML VIAL (*BKC) IV PUSH (18:01)
[2023-10-30] MEDS: METOCLOPRAMIDE HCL INJ 10 MG/2 ML VIAL IV PUSH (18:01)
[2023-10-30] MEDS: diphenhydrAMINE HCl INJ 50 MG/ML VIAL 25 MG IV PUSH (18:02)
[2023-10-30 18:42] VITALS: BP 116/68; PULSE 74; RESP 16; TEMP 36.4; O2SAT 98
== END 2023-10-30 19:30 | disposition home or self-care (01) ==
PROVIDERS: Emergency Medicine; Emergency Provider Physician Assistant; PCP Family Medicine
DX: R51.9 Headache, unspecified (principal); E86.0 Dehydration; Z20.822 Contact with and (suspected) exposure to COVID-19; I12.9 Hypertensive chronic kidney disease with stage 1 through stage 4 chronic kidney disease, or unspecified chronic kidney disease; E11.22 Type 2 diabetes mellitus with diabetic chronic kidney disease; N18.9 Chronic kidney disease, unspecified; E11.40 Type 2 diabetes mellitus with diabetic neuropathy, unspecified; I42.8 Other cardiomyopathies; G47.33 Obstructive sleep apnea (adult) (pediatric); F17.210 Nicotine dependence, cigarettes, uncomplicated; Z95.810 Presence of automatic (implantable) cardiac defibrillator; Z79.84 Long term (current) use of oral hypoglycemic drugs; Z79.82 Long term (current) use of aspirin
CPT/HCPCS: 36415; 70470; 80053; 85025; 87637; 96361; 96374; 96375; 99284; J1200; J1885; J2765; J7040; Q9967

== ENCOUNTER 2023-11-09 11:48 | Outpatient (CLI) | payer MEDICARE, SELFPAY ==
--- NOTE | 2023-11-09 11:56 | ECG_ITS ---
Measurements Intervals Donora Rate: 92 P: 71 MA: 143 QRS: 244 QRSD: 170 T: 53 QT: 407 QTc: 506 Interpretive Statements ELECTRONIC VENTRICULAR PACEMAKER WITH 1 INTRINSIC PVC THAT APPEARS TO BE APPROPRIATELY SENSED ABNORMAL RHYTHM ECG WARNING: DATA QUALITY MAY AFFECT INTERPRETATION COMPARED TO ECG 04/11/2022 16:33:29 NO SIGNIFICANT CHANGE Electronically Signed On 11-09-2023 13:19:42 CDT by Damian Funes M.D.
[2023-11-09 13:03] LABS: Anion Gap 11 mmol/L (4-12); Blood Urea Nitrogen 23 mg/dL (9-20); Calcium 9.2 mg/dL (8.4-10.2); Carbon Dioxide 16 mmol/L (22-30); Chloride 107 mmol/L (98-107); Estimated Glomerular Filt Rate 51; Glucose 211 mg/dL (65-110); Potassium 4.2 mmol/L (3.4-5.0); Sodium 134 mmol/L (137-145)
== END 2023-11-09 11:49 | disposition home or self-care (01) ==
LOC: ANHSURGERY 11:53
PROVIDERS: Anesthesiology; PCP Family Medicine; Visit Provider Otolaryngology
DX: E11.9 Type 2 diabetes mellitus without complications (principal); Z01.818 Encounter for other preprocedural examination
CPT/HCPCS: 36415; 80048; 93005

== ENCOUNTER 2023-11-10 02:01 | Day surgery (SDC) | payer MEDICARE, SELFPAY ==
--- NOTE | 2023-11-05 13:41 | PC.NURSE ---
Report to the Outpatient Waiting Room, entrance under the green pavilion located off [facility], at time __1015 on date _11/10/23 . Planned Procedure Time:1215 . Time changes happen often and if your time is changed the preop area will call you the afternoon before. - You and your visitor will be asked to self-screen and do not enter if you have any COVID symptoms. - A mask is optional within the hospital at this time. Patients may have clear liquids (water, carbonated beverages, clear teas, apple juice) until 3 hours prior to surgery ( 9:15 AM)with a maximum of 20 ounces. - No food from midnight until time of surgery - Infants may have breast milk until 4 hours before surgery, infant formula 6 hours prior to surgery. - Children will be allowed to drink immediately following surgery. If applicable, please bring a bottle or sippy cup to assist with drinking. Juice, water, soda, and popsicles are readily available. For infants on formula, please bring formula the day of surgery. Pacifiers are allowed. Take the following medications with a SIP of water the morning of surgery: __DOXYCYCLINE ,GABAPENTIN,METOPROLOL,TOPIRAMATE DO NOT STOP ANY OF YOUR OTHER PRESCRIPTION MEDICATIONS PRIOR TO SURGERY ?EXCEPT THE FOLLOWING Medications to discontinue per physician ___WIFE STATES HOLD ASPIRIN.LAST DOSE 11/04/[address] BLEDSOE AND HOLD NAPROXEN 2 DAYS PRE OP PER DR BLEDSOE LAST DOSE 11/07/23 HOLD ALL VITAMINS 3 DAYS PRE OP .LAST DOSE 11/06/23 Please no make-up, nail nepali, hairspray, perfume, deodorant, or body powder the day of surgery. No jewelry (including any body piercings) or valuables the day of surgery, leave them at home. Please take a shower or bath the night before, or the morning of, surgery with an antibacterial soap. Wear comfortable, loose fitting clothing. Children are encouraged to wear pajamas. - Jewelry must be removed prior to entering the operating room. Rings and piercings that are not removed may be cut off. - The hospital will not accept responsibility for valuables. - Please leave all valuables, including medications, at home the day of surgery. If you are going home after surgery, a licensed hazardous materials tanker driver must drive you home. - NO public transportation without another adult if you receive anesthesia. - We recommend that an adult stay with you for 24 hours following discharge. - We also recommend that you do not drive, make important decision, drink alcoholic beverages, or take any drugs that were not prescribed by your health care provider for at least 24 hours after your discharge time Follow any additional instructions given to you from your surgeon. If you or anyone in your household have experienced Covid symptoms in the past week, please notify your surgeon or the nurse liaison at the phone number below for possible testing. Telephone instructions given to __WIFE ALLYSON and asked if any additional questions and then verbalized understanding. Patient advised to call surgeon office or pre surgery nurse liaison [phone] if any additional questions.
[2023-11-05 15:10] VITALS: BMI 29.7
--- NOTE | 2023-11-09 15:25 | PM.IMHP ---
H&P: HPI History of Present Illness Date/Time: 11/09/23 15:25 Chief Complaint: Fungal sinusitis chronic sinusitis septal deviation Narrative: planned procedure Review of Systems Review of Systems: All systems reviewed & are unremarkable except as noted in HPI and below [facility] Past Medical History Medical History Biventricular ICD (implantable cardioverter-defibrillator) in place [employer]tr[employer], acute initial device 2009, upgrade in 2014. Chronic decreased left atrial impedance CKD (chronic kidney disease) Diabetes Essential (primary) hypertension History of neuropathy Hyperlipidemia (04/17/17) Nonischemic cardiomyopathy 2009, ejection fraction was 28%. Improved to 40% 2020. KAMI (obstructive sleep apnea) Family History Family History Father Family history of coronary artery disease Cancer Heart disease Social History Social History Smoking status: Never smoker Tobacco type: cigars Smokeless tobacco user: chewing tobacco Additional smoking assessment comments: occassional cigar, every now Alcohol intake: former Substance use: never Substance use type: does not use Living arrangements: with family Spiritual care concerns: No Meds Home Medications and Allergies Home Medications Medication Instructions Recorded Confirmed Type aspirin 81 mg tablet 81 mg PO DAILY 10/13/22 11/05/23 History cholecalciferol (vitamin D3) 250 10,000 unit PO DAILY 10/13/22 11/05/23 History mcg (10,000 unit) capsule furosemide 20 mg tablet 20 mg PO DAILY 10/13/22 11/05/23 History gabapentin 300 mg capsule 300 mg PO BID 10/13/22 11/05/23 History glipizide 5 mg tablet 5 mg PO BID 10/13/22 11/05/23 History loratadine 10 mg tablet 10 mg PO DAILY 10/13/22 11/05/23 History metoprolol succinate 100 mg 100 mg PO DAILY 10/13/22 11/05/23 History tablet,extended release 24 hr mirtazapine 15 mg tablet 15 mg PO HS 10/13/22 11/05/23 History montelukast 10 mg tablet 10 mg PO HS 10/13/22 11/05/23 History naproxen 500 mg tablet 500 mg PO BID PRN Neuropathy 10/13/22 11/05/23 History niacin 500 mg tablet 500 mg PO DAILY 10/13/22 11/05/23 History omega 7-eup-wup-fish oil 300 1 cap PO DAILY 10/13/22 11/05/23 History mg-1,000 mg capsule (Fish Oil) omeprazole 40 mg capsule,delayed 40 mg PO DAILY 10/13/22 11/05/23 History release sacubitril 24 mg-valsartan 26 mg 1 tablet PO BID 10/13/22 11/05/23 History tablet simvastatin 20 mg tablet 20 mg PO DAILY 10/13/22 11/05/23 History spironolactone 25 mg tablet 25 mg PO DAILY 10/13/22 11/05/23 History metoclopramide HCl 5 mg tablet 5 mg PO Q6H PRN nausea and 10/30/23 11/05/23 Rx vomiting #14 tabs doxycycline hyclate 100 mg capsule 100 mg PO BID #20 caps 11/04/23 11/05/23 Rx empagliflozin 25 mg tablet 25 mg PO DAILY 11/05/23 11/05/23 History (Jardiance) linagliptin 5 mg tablet (Tradjenta) 5 mg PO DAILY 11/05/23 11/05/23 History topiramate 25 mg tablet 25 mg PO DAILY 11/05/23 11/05/23 History Allergies Allergy/AdvReac Type Severity Reaction Status Date / Time Penicillins Allergy Intermediate Unknown Verified 11/05/23 13:22 Exam Narrative: chronic sinuses septal deviation Assessment and Plan Assessment and plan (1) Freddie bullosa: Code(s): J34.89 - Other specified disorders of nose and nasal sinuses Status: Acute Assessment and Plan: OR for?bilateral image guided endoscopic maxillary antrostomies total ethmoidectomies frontal sinusotomies sphenoidotomy left sphenoidotomy with tissue removal right freddie bullosa resection possible middle turbinectomies septoplasty. Risks discussed bleeding infection damage to surrounding structures CSF leak brain brain damage change in vision or blindness septal perforation need further procedures failure to resolve symptoms. Damage
[2023-11-10] VITALS (7 sets, daily range): BP systolic 110–136; BP diastolic 59–83; PULSE 100–129; RESP 12–15; TEMP 36.3; O2SAT 97–100; BMI 28.1
--- NOTE | 2023-11-10 07:15 | WPDHPUPDATE1 ---
History and Physical Update Update Date/Time: 11/10/23 07:15 History and Physical has been reviewed, including an updated exam of the patient. There are NO changes in the patient's condition. Risks, benefits, and alternatives have been discussed and questions answered. Patient agrees to proceed with procedure.
[2023-11-10 10:26] LABS: Glucose Point of Care 165 mg/dl (65-105)
--- NOTE | 2023-11-10 12:32 | WPDANESEPPF ---
Anes - Initial Pre Proc Eval Procedure: Operation Date: 11/10/23 12:15 Proposed Procedures p Image Guided Bilateral Endoscopic Maxillary Antrostomy, Total Ethmoidectomy, Bilateral Frontal Sinusotomy, Right Sphenoidotomy, Left Sphenoidotomy with Tissue Removal, Right Tova Bullosa Resection, Possible Middle Turbinectomy - Eric Vidal MD s Endoscopic Septoplasty - Eric Vidal MD Date/Time: 11/10/23 12:32 Surgeon: Eric Vidal MD Pre Op Diagnosis: Chr Sinsusitis, Septal Dev, Conchabullosa Patient Data Age: 68 Gender: M Height: 1.73 m Weight: 83.9 kg Allergies Allergy/AdvReac Type Severity Reaction Status Date / Time Penicillins Allergy Intermediate Unknown Verified 11/10/23 10:42 Home Medications Medication Instructions Recorded Confirmed Type aspirin 81 mg tablet 81 mg PO DAILY 10/13/22 11/10/23 History cholecalciferol (vitamin D3) 250 10,000 unit PO DAILY 10/13/22 11/05/23 History mcg (10,000 unit) capsule furosemide 20 mg tablet 20 mg PO DAILY 10/13/22 11/05/23 History gabapentin 300 mg capsule 300 mg PO BID 10/13/22 11/10/23 History glipizide 5 mg tablet 5 mg PO BID 10/13/22 11/05/23 History loratadine 10 mg tablet 10 mg PO DAILY 10/13/22 11/05/23 History metoprolol succinate 100 mg 100 mg PO DAILY 10/13/22 11/10/23 History tablet,extended release 24 hr mirtazapine 15 mg tablet 15 mg PO HS 10/13/22 11/05/23 History montelukast 10 mg tablet 10 mg PO HS 10/13/22 11/05/23 History naproxen 500 mg tablet 500 mg PO BID PRN Neuropathy 10/13/22 11/10/23 History niacin 500 mg tablet 500 mg PO DAILY 10/13/22 11/05/23 History omega 8-hmq-zlm-fish oil 300 1 cap PO DAILY 10/13/22 11/05/23 History mg-1,000 mg capsule (Fish Oil) omeprazole 40 mg capsule,delayed 40 mg PO DAILY 10/13/22 11/05/23 History release sacubitril 24 mg-valsartan 26 mg 1 tablet PO BID 10/13/22 11/05/23 History tablet simvastatin 20 mg tablet 20 mg PO DAILY 10/13/22 11/05/23 History spironolactone 25 mg tablet 25 mg PO DAILY 10/13/22 11/05/23 History metoclopramide HCl 5 mg tablet 5 mg PO Q6H PRN nausea and 10/30/23 11/05/23 Rx vomiting #14 tabs doxycycline hyclate 100 mg capsule 100 mg PO BID #20 caps 11/04/23 11/10/23 Rx empagliflozin 25 mg tablet 25 mg PO DAILY 11/05/23 11/05/23 History (Jardiance) linagliptin 5 mg tablet (Tradjenta) 5 mg PO DAILY 11/05/23 11/05/23 History topiramate 25 mg tablet 25 mg PO DAILY 11/05/23 11/10/23 History Laboratory Tests 11/10/23 10:23 POC Capillary Glucose 165 H mg/dl (65-105) Patient hx anesthesia problems: none Family hx anesthesia problems: none Results Review: All pre-operative results and documents have been reviewed as part of the pre-operative evaluation. [facility] Past Medical History Medical History Biventricular ICD (implantable cardioverter-defibrillator) in place Medtronic, acute initial device 2009, upgrade in 2014. Chronic decreased left atrial impedance CKD (chronic kidney disease) Diabetes Essential (primary) hypertension History of neuropathy Hyperlipidemia (04/17/17) Nonischemic cardiomyopathy 2009, ejection fraction was 28%. Improved to 40% 2020. KAMI (obstructive sleep apnea) Family History Family History Father Family history of coronary artery disease Cancer Heart disease Social History Social History Smoking status: Never smoker Tobacco type: cigars Smokeless tobacco user: chewing tobacco Additional smoking assessment comments: occassional cigar, every now Alcohol intake: former Substance use: never Substance use type: does not use Living arrangements: with family Spiritual care concerns: No Anes - Eval Final PreProcedure Day of Procedure 11/10/23 12:32 Patient weight: overweight Heart: regular rate and rhythm Lungs: decreased mino
[2023-11-10] MEDS: ACETAMINOPHEN 500 MG TABLET 1000 MG PO (12:57)
[2023-11-10] MEDS: LACTATED RINGERS 1,000 ML 30 ML IV CONT ×2 (13:00→16:40)
--- NOTE | 2023-11-10 13:01 | SUR.PREOP ---
Discussedd continued delay with patient and his .
[2023-11-10] MEDS: ceFAZolin 2 GM/D5W 50 ML 2 GM/50 ML BAG IVPB (13:55)
[2023-11-10] MEDS: MUPIROCIN 2% OINT 22 GM TUBE 1 APPLIC EACH NARE (14:16)
[2023-11-10] MEDS: OXYMETAZOLINE HCL 0.05% NAS 15 ML BTL (*BKC) 1 SPRAY NASAL (14:16)
[2023-11-10] MEDS: LIDO 1%/EPINEPHRINE 1:100,000 20 ML VIAL INFILTRATE (14:17)
--- NOTE | 2023-11-10 16:56 | P.OP_ITS ---
Procedure Note - Detailed Date of Procedure 11/10/23 Pre-op Diagnosis Chr Sinsusitis, Septal Dev, Conchabullosa , fungal sinusitis, Post-op Diagnosis Same Procedure Performed Right-sided endoscopic image guided freddie bullosa resection left-sided sphenoidotomy with tissue removal bilateral image guided maxillary antrostomies total ethmoidectomies frontal sinusotomy right-sided sphenoidotomy endoscopic assisted septoplasty. Surgeon Eric Vidal MD Anesthesia General Findings fungus spreading out of the sphenoid dehiscent optic nerve edematous polypoid tissue all the aforementioned sinuses thick mucus severely deviated leftward septum minimal bleeding good procedure Description of Procedure patient identified consent verified preop. Patient brought operating. Time- out. General anesthesia induced endotracheal tube secured airway patient prepped draped position procedure confirmed 2nd time-out performed. Image guidance initiated confirmed. Afrin-soaked pledgets placed for 5 minutes then removed. Total 15 cc 1% lidocaine with [id number] epi injected bilateral nasal septum. Timur incision made left-sided left nasal septal flap elevated. Osteotome utilized crossover right nasal septal flap elevated deviated septum removed with osteotome Estrada Infante forceps Osiris forceps. Only tears over the left side where there was a big spur. [place] incision closed interrupted 5 0 fast gut sutures. Maxillary antrostomies performed with double ball tip probes backbiter straight through cut image guidance and microdebrider total ethmoids performed with Kerrison microdebrider and image guidance. Sinusotomies performed with sphenoid punch Kerrison microdebrider image guidance left side had diffuse fungal tissue pouring out this was washed out with copious amounts sterile normal saline no fungal tissue remained frontal sinusotomies performed with guidance frontal sinus suction seeker Marissa Perez and rad 60 microdebrider. Wound copiously irrigated Nova pack placed bilateral operative cavity Page splints placed sutured anteriorly using a 3-0 mattress nylon suture. Of note right freddie was resected with straight through cut and microdebrider. Patient tolerated the procedure very well no complications blood loss 25 cc. I performed all dictated portions procedure care the patient given Anesthesiology no complications patient taken to PACU. Estimated Blood Loss 25 Drains No Packing Yes ( Nova pack) Pathology None sent Complications No immediate complications Condition Stable Disposition PACU [facility] Billing Surgery - Charge Forward: Surgery Billing
[2023-11-10 17:31] LABS: Glucose Point of Care 111 mg/dl (65-105)
== END 2023-11-10 18:35 | disposition home or self-care (01) ==
PROVIDERS: PCP Family Medicine; Visit Provider Otolaryngology
PROC: (CPT 31256; principal; 2023-11-10 12:15)
PROC: (CPT 30520; 2023-11-10 12:15)
DX: J32.9 Chronic sinusitis, unspecified (principal); B48.8 Other specified mycoses; J34.2 Deviated nasal septum; J33.8 Other polyp of sinus; J34.89 Other specified disorders of nose and nasal sinuses; H47.092 Other disorders of optic nerve, not elsewhere classified, left eye; Z95.810 Presence of automatic (implantable) cardiac defibrillator; I12.9 Hypertensive chronic kidney disease with stage 1 through stage 4 chronic kidney disease, or unspecified chronic kidney disease; E11.22 Type 2 diabetes mellitus with diabetic chronic kidney disease; N18.9 Chronic kidney disease, unspecified; E78.5 Hyperlipidemia, unspecified; I42.8 Other cardiomyopathies; G47.33 Obstructive sleep apnea (adult) (pediatric); F17.220 Nicotine dependence, chewing tobacco, uncomplicated; Z79.82 Long term (current) use of aspirin; Z79.84 Long term (current) use of oral hypoglycemic drugs
CPT/HCPCS: 31256; 31257; 31276; 61782; 31240; 30520; 36415; 80048; 82948; 93005; A9270; J0690; J2250; J2405; J2704; J3010; J7120

== ENCOUNTER 2023-11-17 10:10 | Emergency (ER) | payer MEDICARE, SELFPAY ==
[2023-11-17] VITALS (9 sets, daily range): BP systolic 76–120; BP diastolic 59–80; PULSE 73–91; RESP 14–18; TEMP 36.3–37.2; O2SAT 92–99
--- NOTE | ~2023-11-17 | CT_ITS ---
EXAMINATION: CT brain wo/w con, CT orbit BI w con DATE: 11/17/2023 11:09 INDICATION: Recent sinus surgery with vision loss in the right eye TECHNIQUE: 1. Computed tomography (CT) of the head was performed without and with 100 mL Omnipaque-350 intraveno us contrast. Sagittal and coronal reconstructions were performed. The mA was adjusted according to pa tient size. Iterative reconstruction technique was employed. The dose-length product was 605.33 mGy-c m. 2. CT of the orbits was performed without and with the identical 100 mL Omnipaque 350 intravenous con trast bolus. Sagittal and coronal reconstructions were performed. Automated exposure control and iter ative reconstruction technique were employed. The dose-length product was 214.77 mGy-cm. COMPARISON: Sinus CT dated 10/21/[address] dated 10/30/2023 FINDINGS: No acute intracranial hemorrhage, acute infarction or abnormal extra axial fluid collection. Unchange d mild scattered white matter hypoattenuation consistent with chronic small vessel ischemic disease. Symmetric prominence of the sulci and subarachnoid spaces overlying the convexities consistent with m ild age-appropriate diffuse cerebral volume loss. Ventricles are normal and symmetric. No mass/mass effect. No abnormally enhancing brain lesions. Right vertebral artery is dominant. Bilateral mastoid air cells and middle ear cavities are clear. Postoperative changes of bilateral antral window procedures with resection of portions of the medial bentley of both the left and right maxillary sinuses, partial resection of a right middle turbinate con eddie bullosa and partial ethmoidectomies with resection of multiple osseous septations along the infer ior aspect of the bilateral ethmoid sinuses. There has also been interval resection of the anterior w all of the right sphenoid sinus. The anterior wall of the left sphenoid sinus remains absent with per sistent complete opacification of the left sphenoid sinus which demonstrates irregular thickened scle rotic bentley consistent with likely chronic sinusitis. There has been some progression of prominent mu cosal thickening in the right sphenoid and bilateral maxillary and ethmoid sinuses now extending into the bilateral frontoethmoidal recesses. There are regions where the linear calcific density of the lamina papyracea on both the left and righ t becomes nearly indiscernible and could not absolutely exclude dehiscence. The intraorbital contents however appear normal bilaterally with intact appearing globes and no evident abnormally enhancing l esions or abnormal fat stranding within the intraorbital fat. Similarly there small region with essen tially indiscernible calcific density along the cribriform plate along the roof of the left and right ethmoid sinuses and focal dehiscence is not excludable although there is no evident underlying absce ss or other evident calvarial extension of disease. A similar small region of equivocal cortical inte grity is seen at the posterosuperior aspect of the posterior most left ethmoid sinus which includes a portion of the floor of the bilateral orbital canals and the anterior wall of the ophthalmic portion of the left internal carotid canal. On the right there is a similar region of potential osseous dest ruction since involving the bentley of the posterior most right ethmoid air cell and adjacent anterolat eral wall of the right sphenoid sinus which abut the right pterygoid palatine fossa. There does appea r to be asymmetric increased soft tissue density replacing the fat attenuation within the right ptery gopalatine fossa. The suprasellar cistern appears normal with no evident aneurysm or other abnormal m asses. IMPRESSION: 1. No acute intracranial process. 2. Postoperative changes in the bilateral paranasal sinuses including bilateral antral window procedu res, partial resection of a right middle turbinate freddie bullosa and interval resection of
[2023-11-17 10:44] LABS: Basophils Percent Auto 0.1 % (0.2-1.2); Eosinophils Percent Auto 0.1 % (0-4.4); Hematocrit 35.6 % (42.0-52.0); Hemoglobin 11.2 g/dL (14.0-18.0); Immature Granulocyte Absolute 0.04 K/mm3 (0.00-0.031); Immature Granulocyte Percent A 0.4 % (0-0.5); Lymphocytes Absolute Auto 1.04 K/mm3 (0.9-3.2); Lymphocytes Percent Auto 9.1 % (18.3-44.2); Mean Corpuscular HGB Conc 31.5 g/dl (32-36); Mean Corpuscular Hemoglobin 28.1 pg (26-34); Mean Corpuscular Volume 89.2 fl (80-100); Mean Platelet Volume 11.6 fl (7.4-10.4); Monocytes Absolute Auto 0.8 K/mm3 (0.1-0.6); Monocytes Percent Auto 6.7 % (2.6-8.5); Neutrophils Absolute Auto 9.6 K/mm3 (1.3-6.7); Neutrophils Percent Auto 83.6 % (45.5-73.1); Platelet Count Result 186 k/mm3 (150-375); Red Blood Count 3.99 M/mm3 (4.6-6.20); Red Cell Distribution Width 14.7 % (11.5-14.5); White Blood Count 11.4 K/mm3 (4.5-10.0)
[2023-11-17 10:54] LABS: Prothrombin Time 13.9 Seconds (11.1-14.7)
[2023-11-17 10:54] LABS: Estimated CRCL calculation 48 ml/min; Estimated Glomerular Filt Rate 55
[2023-11-17 10:57] LABS: Alanine Aminotransferase 27 U/L (6-50); Albumin Level 3.7 g/dL (3.5-5.1); Alkaline Phosphatase 121 U/L (38-126); Anion Gap 8 mmol/L (4-12); Aspartate Amino Transferase 36 U/L (17-59); Bilirubin,Total 0.6 mg/dL (0.2-1.3); Blood Urea Nitrogen 27 mg/dL (9-20); Calcium 9.3 mg/dL (8.4-10.2); Carbon Dioxide 22 mmol/L (22-30); Chloride 103 mmol/L (98-107); Estimated CRCL calculation 48 ml/min; Estimated Glomerular Filt Rate 55; Glucose 214 mg/dL (65-110); Potassium 4.3 mmol/L (3.4-5.0); Sodium 133 mmol/L (137-145)
--- NOTE | 2023-11-17 13:41 | ED.EYEPROB ---
HPI - Eye Problem General Chief complaint: Eye Problems Stated complaint: sent from eye dr, concern for orbital hemorrhage Time Seen by Provider: 11/17/23 10:34 Source: patient and family Mode of arrival: ambulatory Limitations: no limitations History of Present Illness HPI Narrative: 68-year-old with a history of hypertension, CKD, diabetes was brought in by his with the complaints of visual loss. Patient states that he had sinus surgery on 11/10/2023 here at [facility] 2 days after the surgery she has states that he lost his vision in the left side, was seen by ENT and was recommended to go to Ophthalmology and he was started on steroids at that time. However patient states that his having visual changes in the right eye as well for the past 2 days. Patient was seen earlier [facility] in [place] , he had eye drops in both eyes , was advised to go to the ER for CT scan . Patient presently denies having any headache, nausea or vomiting. MD chief complaint: vision change Onset (ago): week(s) (1) Onset description: gradual Duration: constant Location: both eyes Eye Symptoms: decreased vision Severity: severe Associated symptoms: none Related Data Home Medications Medication Instructions Recorded Confirmed aspirin 81 mg tablet 81 mg PO DAILY 10/13/22 11/16/23 cholecalciferol (vitamin D3) 250 10,000 unit PO DAILY 10/13/22 11/16/23 mcg (10,000 unit) capsule furosemide 20 mg tablet 20 mg PO DAILY 10/13/22 11/16/23 gabapentin 300 mg capsule 300 mg PO BID 10/13/22 11/16/23 glipizide 5 mg tablet 5 mg PO BID 10/13/22 11/16/23 loratadine 10 mg tablet 10 mg PO DAILY 10/13/22 11/16/23 metoprolol succinate 100 mg 100 mg PO DAILY 10/13/22 11/16/23 tablet,extended release 24 hr mirtazapine 15 mg tablet 15 mg PO HS 10/13/22 11/16/23 montelukast 10 mg tablet 10 mg PO HS 10/13/22 11/16/23 naproxen 500 mg tablet 500 mg PO BID PRN Neuropathy 10/13/22 11/16/23 niacin 500 mg tablet 500 mg PO DAILY 10/13/22 11/16/23 omega 2-cvk-yun-fish oil 300 1 cap PO DAILY 10/13/22 11/16/23 mg-1,000 mg capsule (Fish Oil) omeprazole 40 mg capsule,delayed 40 mg PO DAILY 10/13/22 11/16/23 release sacubitril 24 mg-valsartan 26 mg 1 tablet PO BID 10/13/22 11/16/23 tablet simvastatin 20 mg tablet 20 mg PO DAILY 10/13/22 11/16/23 spironolactone 25 mg tablet 25 mg PO DAILY 10/13/22 11/16/23 empagliflozin 25 mg tablet 25 mg PO DAILY 11/05/23 11/16/23 (Jardiance) linagliptin 5 mg tablet (Tradjenta) 5 mg PO DAILY 11/05/23 11/16/23 topiramate 25 mg tablet 25 mg PO DAILY 11/05/23 11/16/23 Allergies Allergy/AdvReac Type Severity Reaction Status Date / Time Penicillins Allergy Intermediate Unknown Verified 11/17/23 10:21 Review of Systems Review of Systems: All systems reviewed & are unremarkable except as noted in HPI and below Constitutional: Constitutional: Reports no additional constitutional complaints Eyes: Eyes: Reports as per HPI Respiratory: Respiratory: Reports no additional respiratory complaints Musculoskeletal: Musculoskeletal: Reports no additional musculoskeletal complaints Neurologic: Reports system reviewed and no additional complaints, except as documented PMF Past Medical History Medical History Biventricular ICD (implantable cardioverter-defibrillator) in place Medtr[employer], acute initial device 2009, upgrade in 2014. Chronic decreased left atrial impedance CKD (chronic kidney disease) Diabetes Essential (primary) hypertension History of neuropathy Hyperlipidemia (04/17/17) Nonischemic cardiomyopathy 2009, ejection fraction was 28%. Improved to 40% 2020. KAMI (obstructive sleep apnea) Surgical History Surgical History H/O sinus surgery Family History Family History Father Family history of coronary artery disease Cancer Heart disease Soci
== END 2023-11-17 14:00 | disposition short-term general hospital (02) ==
PROVIDERS: Emergency Provider Family Medicine; PCP Family Medicine
DX: H54.7 Unspecified visual loss (principal); E11.22 Type 2 diabetes mellitus with diabetic chronic kidney disease; N18.9 Chronic kidney disease, unspecified; E11.40 Type 2 diabetes mellitus with diabetic neuropathy, unspecified; I42.8 Other cardiomyopathies; G47.33 Obstructive sleep apnea (adult) (pediatric); F17.220 Nicotine dependence, chewing tobacco, uncomplicated; F17.290 Nicotine dependence, other tobacco product, uncomplicated; Z95.810 Presence of automatic (implantable) cardiac defibrillator; Z79.82 Long term (current) use of aspirin; Z79.84 Long term (current) use of oral hypoglycemic drugs
CPT/HCPCS: 36415; 70470; 70481; 80053; 85025; 85610; 85730; 99285; Q9967

== ENCOUNTER 2024-01-12 12:31 | Outpatient (CLI) | payer MEDICARE, SELFPAY ==
--- NOTE | ~2024-01-12 | CT_ITS ---
EXAMINATION: CT brain wo con DATE: 01/12/2024 12:58 INDICATION: Headache. TECHNIQUE: Computed tomography (CT) of the head was performed without intravenous contrast. The mA wa s adjusted according to patient size. Iterative reconstruction technique was employed. The dose-lengt h product was 599.57 mGy-cm. COMPARISON: Head CT 11/17/2023 FINDINGS: There is no intracranial hemorrhage, acute infarction, or abnormal intracranial mass lesion . There are scattered areas of low attenuation in the cerebral white matter, which is within normal l imits for the patient's age. The ventricles are normal in size. There is mucosal thickening in the pa ranasal sinuses. There is thickening and sclerosis of the bentley of left sphenoid sinus, consistent wi th chronic sinusitis. There is a trace left mastoid effusion. IMPRESSION: 1. Normal aging brain. 2. Chronic sinusitis. Reviewed, dictated and finalized at location A.
== END 2024-01-12 12:32 ==
LOC: MICIMG 12:32
PROVIDERS: PCP Family Medicine; Visit Provider Family Medicine
DX: G44.51 Hemicrania continua (principal); J01.40 Acute pansinusitis, unspecified
CPT/HCPCS: 70450

== ENCOUNTER 2024-01-24 14:27 | Emergency (ER) | payer MEDICARE, SELFPAY ==
--- NOTE | ~2024-01-24 | CT_ITS ---
CT brain wo con Ordering provider: Quique Torre MD History: 68 years Male with . AMS . Comparison: January 12, 2024 Technique: CT of the head without contrast. Radiation reduction technique utilized. DLP is 605.33 mGy . FINDINGS: BRAIN PARENCHYMA AND CSF SPACES: No midline shift, mass effect or hemorrhage. The brain parenchyma a nd CSF spaces are otherwise normal. Possible slight thickening of the dura in the left medial tempora l area is not excluded. VISUALIZED PARANASAL SINUSES: Left sphenoid sinus disease with thickened bone suggestive of chronic c hanges. Adjacent bone destruction is not excluded. MRI with contrast is advised to exclude infectious process in the brain. MASTOIDS: Well aerated. BONES: The bones appear intact. SOFT TISSUES: Visualized nasopharynx is normal. Superficial soft tissues are normal. Soft tissue density in the posterior left orbit and adjacent to the left ethmoid sinuses is not exclu ded and MRI is advised. IMPRESSION: No definite acute intracranial findings. Chronic left sphenoid sinusitis. Adjacent bone destruction is not excluded. MRI with contrast is advi sed to exclude infectious process in the brain. Possible soft tissue density in the posterior aspect of the left orbit and adjacent to the left ethmo id sinus. Reviewed, dictated and finalized at location A. IMPRESSION: No definite acute intracranial findings. Chronic left sphenoid sinusitis. Adjacent bone destruction is not excluded. MRI with contrast is advised to exclude infectious process in the brain. Possible soft tissue density in the posterior aspect of the left orbit and ze cent to the left ethmoid sinus.
--- NOTE | ~2024-01-24 | XR_ITS ---
XR chest 1V Ordering provider: Quique Torre MD History: 68 years Male with . AMS . Comparison: April 11, 2022 FINDINGS: MEDIASTINUM: The cardiac silhouette is not enlarged. Left tripolar pacemaker. LUNGS: No infiltrates, effusions or pneumothorax. OTHER: No free air under the diaphragm. Metallic shrapnel is are projected over the right hemithorax. IMPRESSION: No acute cardiopulmonary pathology. Reviewed, dictated and finalized at location A.
--- NOTE | ~2024-01-24 | CT_ITS ---
CT brain w con Ordering provider: Quique Torre MD History: 68 years Male with . eval for infection . Comparison: Exam done without contrast in the same day Technique: CT of the head with contrast. Radiation reduction technique utilized. The DLP is 832.33 mGy. FINDINGS: BRAIN PARENCHYMA AND CSF SPACES: No definite enhancement of the meninges is seen which makes exclude meningitis. Enhancement in the soft tissue density seen posteriorly in the left orbit which is sugges tive of inflammatory changes. Small collection in that area posteriorly cannot be excluded which jovani ures 1.1 x 1 cm. No midline shift, mass effect or hemorrhage. The brain parenchyma and CSF spaces ar e otherwise normal. VISUALIZED PARANASAL SINUSES: Left dyspnea sphenoid chronic sinusitis. Soft tissue density in the med ial aspect of the left orbit most likely inflammatory MASTOIDS: Well aerated. BONES: The bones appear intact. SOFT TISSUES: Visualized nasopharynx is normal. Superficial soft tissues are normal. IMPRESSION: No significant change from previous examination. No definite enhancement seen in the meningeal coveri ng. Soft tissue density in the medial aspect of the left orbit and posterior left orbit with possibility of small collection. Abscess cannot be excluded. Follow-up advised. Reviewed, dictated and finalized at location A. IMPRESSION: No significant change from previous examination. No definite enhancement seen i n the meningeal covering. Soft tissue density in the medial aspect of the left orbit and posterior left o rbit with possibility of small collection. Abscess cannot be excluded. Follow-u p advised.
[2024-01-24 14:30] VITALS: BP 101/68; PULSE 95; RESP 14; TEMP 36.4; O2SAT 97
[2024-01-24] MEDS: DEXTROSE 50% 25 GM/50 ML SYRINGE IV PUSH (14:35)
--- NOTE | 2024-01-24 14:36 | ECG_ITS ---
Test Date: 2024-01-24 14:37:09 Measurements Intervals [place] Rate: 95 P: 22 CO: 159 QRS: 252 QRSD: 180 T: 29 QT: 411 QTc: 518 Interpretive Statements SINUS RHYTHM WITH ELECTRONIC VENTRICULAR PACEMAKER ATYPICAL ECG No previous ECG available for comparison Electronically Signed On 01-25-2024 11:29:11 CDT by Markie Agustin M.D.
[2024-01-24 14:37] LABS: Glucose Point of Care 47 mg/dl (65-105)
[2024-01-24 14:48] LABS: Basophils Percent Auto 0.1 % (0.2-1.2); Eosinophils Percent Auto 0.3 % (0-4.4); Hematocrit 38.9 % (42.0-52.0); Hemoglobin 12.4 g/dL (14.0-18.0); Immature Granulocyte Percent A 0.7 % (0-0.5); Lymphocytes Absolute Auto 1.04 K/mm3 (0.9-3.2); Lymphocytes Percent Auto 7.3 % (18.3-44.2); Mean Corpuscular HGB Conc 31.9 g/dl (32-36); Mean Corpuscular Hemoglobin 28.1 pg (26-34); Mean Corpuscular Volume 88.2 fl (80-100); Monocytes Absolute Auto 0.7 K/mm3 (0.1-0.6); Monocytes Percent Auto 4.9 % (2.6-8.5); Neutrophils Absolute Auto 12.4 K/mm3 (1.3-6.7); Neutrophils Percent Auto 86.7 % (45.5-73.1); Platelet Count Result 272 k/mm3 (150-375); Red Blood Count 4.41 M/mm3 (4.6-6.20); Red Cell Distribution Width 17.1 % (11.5-14.5); White Blood Count 14.3 K/mm3 (4.5-10.0)
[2024-01-24 14:59] LABS: Prothrombin Time 13.2 Seconds (11.1-14.7)
[2024-01-24 15:00] LABS: Partial Thromboplastin Time 38.5 Seconds (22.3-36.8)
[2024-01-24 15:01] VITALS: BP 109/70; PULSE 97; RESP 18; O2SAT 97
[2024-01-24 15:05] LABS: Alanine Aminotransferase 13 U/L (6-50); Albumin Level 3.9 g/dL (3.5-5.1); Alkaline Phosphatase 164 U/L (38-126); Anion Gap 15 mmol/L (4-12); Aspartate Amino Transferase 20 U/L (17-59); Bilirubin,Total 0.6 mg/dL (0.2-1.3); Blood Urea Nitrogen 25 mg/dL (9-20); Calcium 9.4 mg/dL (8.4-10.2); Carbon Dioxide 12 mmol/L (22-30); Chloride 107 mmol/L (98-107); Estimated CRCL calculation 39 ml/min; Estimated Glomerular Filt Rate 47; Glucose 42 mg/dL (65-110); Potassium 4.5 mmol/L (3.4-5.0); Sodium 134 mmol/L (137-145)
[2024-01-24 15:11] LABS: Troponin I < 0.012 ng/mL (0.000-0.034)
[2024-01-24 15:24] LABS: Appearance Urine Clear (Clear); Bacteria Urine None Seen /hpf; Bilirubin Urine Negative (Negative); Blood Urine Negative (Negative); Color Urine Yellow (Yellow); Glucose Urine UA 2+ mg/dL (Negative); Ketones Urine Negative (Negative); Leukocyte Esterase Ur Negative LEU/UL (Negative); Need Manual Microscopic Reviewed; Nitrate Urine Negative (Negative); Protein Urine 2+ mg/dL (Negative); RBC Urine 0-2 /hpf (0-2); Specific Grav Ur 1.018 (1.001-1.035); Squamous Epithelial Cell Urine None Seen /hpf (Few); Urobilinogen Urine 0.2 mg/dL (<2.0); WBC Urine 0-5 /hpf (0-3)
[2024-01-24 15:25] LABS: Add Urine Microscopic? YES
--- NOTE | 2024-01-24 15:29 | ED.AMS ---
HPI - Altered Mental Status General Chief Complaint: Altered Mental Status Stated Complaint: stroke symptoms Time Seen by Provider: 01/24/24 14:28 History of Present Illness HPI narrative: Patient is a 68-year-old male who presents the ER with concerns for stroke-like symptoms. Last known well was yesterday evening. Woke up this morning at 5:00 a.m. and patient has been slurring his words and not making sense when he speaks. He is diffusely weak. Family decided to bring him in for evaluation. Accu-Chek in the 40s. After receiving dextrose 50 patient is keenly alert and moving all extremities. Patient has recent history of complications of sinus surgery and a fungus growing behind his eyes. 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 Related Data Home Medications Medication Instructions Recorded Confirmed aspirin 81 mg tablet 81 mg PO DAILY 10/13/22 11/16/23 cholecalciferol (vitamin D3) 250 10,000 unit PO DAILY 10/13/22 11/16/23 mcg (10,000 unit) capsule furosemide 20 mg tablet 20 mg PO DAILY 10/13/22 11/16/23 gabapentin 300 mg capsule 300 mg PO BID 10/13/22 11/16/23 glipizide 5 mg tablet 5 mg PO BID 10/13/22 11/16/23 loratadine 10 mg tablet 10 mg PO DAILY 10/13/22 11/16/23 metoprolol succinate 100 mg 100 mg PO DAILY 10/13/22 11/16/23 tablet,extended release 24 hr mirtazapine 15 mg tablet 15 mg PO HS 10/13/22 11/16/23 montelukast 10 mg tablet 10 mg PO HS 10/13/22 11/16/23 naproxen 500 mg tablet 500 mg PO BID PRN Neuropathy 10/13/22 11/16/23 niacin 500 mg tablet 500 mg PO DAILY 10/13/22 11/16/23 omega 2-hxt-vbz-fish oil 300 1 cap PO DAILY 10/13/22 11/16/23 mg-1,000 mg capsule (Fish Oil) omeprazole 40 mg capsule,delayed 40 mg PO DAILY 10/13/22 11/16/23 release sacubitril 24 mg-valsartan 26 mg 1 tablet PO BID 10/13/22 11/16/23 tablet simvastatin 20 mg tablet 20 mg PO DAILY 10/13/22 11/16/23 spironolactone 25 mg tablet 25 mg PO DAILY 10/13/22 11/16/23 empagliflozin 25 mg tablet 25 mg PO DAILY 11/05/23 11/16/23 (Jardiance) linagliptin 5 mg tablet (Tradjenta) 5 mg PO DAILY 11/05/23 11/16/23 topiramate 25 mg tablet 25 mg PO DAILY 11/05/23 11/16/23 Allergies Allergy/AdvReac Type Severity Reaction Status Date / Time Penicillins Allergy Intermediate Unknown Verified 01/24/24 15:30 Review of Systems Review of Systems: ROS unobtainable: Yes unobtainable due to medical condition PMFSH Past Medical History Medical History Biventricular ICD (implantable cardioverter-defibrillator) in place [employer]tr[employer], acute initial device 2009, upgrade in 2014. Chronic decreased left atrial impedance CKD (chronic kidney disease) Diabetes Essential (primary) hypertension History of neuropathy Hyperlipidemia (04/17/17) Nonischemic cardiomyopathy 2009, ejection fraction was 28%. Improved to 40% 2020. KAMI (obstructive sleep apnea) Surgical History Surgical History H/O sinus surgery Family History Family History Father Family history of coronary artery disease Cancer Heart disease Social History Social History Smoking status: Never smoker Tobacco type: cigars Smokeless tobacco user: chewing tobacco Additional smoking assessment comments: occassional cigar, every now Alcohol intake: former Substance use: never Substance use type: does not use Living arrangements: with family Spiritual care concerns: No Exam Narrative: GENERAL: Chronically ILL-appearing, well-nourished, and in no acute distress. HEAD: Normocephalic, atraumatic. ENT: Mucous membranes moist. NECK: Supple. CHEST: Clear to auscultation. No respiratory distress. HEART: Regular rate and rhythm. Normal peripheral pulses. ABDOMEN: Soft, nontender, nondistended. EXTREMITIES: Normal range of motion. No edema. SKIN
[2024-01-24 15:30] VITALS: BP 110/72; PULSE 106; RESP 21; O2SAT 98
[2024-01-24 15:35] LABS: Glucose Point of Care 106 mg/dl (65-105)
[2024-01-24 16:30] VITALS: BP 106/68; PULSE 107; RESP 14; O2SAT 98
[2024-01-24] MEDS: ACETAMINOPHEN 325 MG TABLET 650 MG PO (16:41)
[2024-01-24 16:45] LABS: Glucose Point of Care 95 mg/dl (65-105)
[2024-01-24 17:06] VITALS: BP 134/100; PULSE 94; RESP 20; O2SAT 95
[2024-01-24 17:45] VITALS: BP 112/72; PULSE 80; RESP 16; O2SAT 96
== END 2024-01-24 17:45 | disposition home or self-care (01) ==
PROVIDERS: Emergency Provider Emergency Medicine; PCP Family Medicine
DX: E11.649 Type 2 diabetes mellitus with hypoglycemia without coma (principal); H44.002 Unspecified purulent endophthalmitis, left eye; I12.9 Hypertensive chronic kidney disease with stage 1 through stage 4 chronic kidney disease, or unspecified chronic kidney disease; N18.9 Chronic kidney disease, unspecified; E11.22 Type 2 diabetes mellitus with diabetic chronic kidney disease; E78.5 Hyperlipidemia, unspecified; H54.7 Unspecified visual loss; I42.8 Other cardiomyopathies; G62.9 Polyneuropathy, unspecified; G47.33 Obstructive sleep apnea (adult) (pediatric); F17.290 Nicotine dependence, other tobacco product, uncomplicated; F17.220 Nicotine dependence, chewing tobacco, uncomplicated; Z95.0 Presence of cardiac pacemaker; Z79.899 Other long term (current) drug therapy; Z79.82 Long term (current) use of aspirin; Z79.84 Long term (current) use of oral hypoglycemic drugs; J32.3 Chronic sphenoidal sinusitis
CPT/HCPCS: 36415; 70450; 70460; 70470; 71045; 80053; 81001; 82948; 84484; 85025; 85610; 85730; 93005; 96374; 99284; A9270; Q9967

== ENCOUNTER 2024-01-25 17:57 | Emergency (ER) | payer MEDICARE, SELFPAY ==
--- NOTE | ~2024-01-25 | CT_ITS ---
EXAMINATION: CTA brain carotid DATE: 01/25/2024 21:31 INDICATION: confusion, slurred speech TECHNIQUE: Computed tomographic angiography (CTA) of the head was performed without and with 100 mL O mnipaque-350 intravenous contrast. CTA of the neck was performed with intravenous contrast. The dose- length product was 1856.90 mGy-cm. Maximum intensity projection and volume rendered 3D-reconstruction s were created by the technologist on a separate workstation. COMPARISON: 01/24/2024; 11/17/2023. FINDINGS: CT BRAIN: No acute large vessel infarct, intracranial hemorrhage, mass, or hydrocephalus. Prominent bifrontal e xtra-axial spaces. Left sphenoid opacification with surrounding sclerosis and evidence of wall breakd own along the anterior left sphenoid sinus wall and left medial orbital wall. Bilateral maxillary and ethmoid mucosal thickening. Bilateral antral window procedures. Minimal bilateral mastoid fluid. Per sistent soft tissue thickening and enhancement in the posterior medial left orbit and orbital apex. CTA HEAD: No large vessel occlusion, aneurysm, high flow vascular malformation, nidus or extravasation. Calcifi ed plaque in the distal aspect of the left cavernous carotid causing severe short segment stenosis. N oncalcified severe short segment narrowing of the distal aspect of the intracranial left internal com mon carotid artery. CTA NECK: Aortic arch and proximal great vessels: Bovine arch anatomy. No significant arch calcification. Right common carotid, carotid bifurcation, and internal carotid artery: No plaque.There is 0% stenosi s of the proximal right internal carotid artery relative to normal distal artery lumen diameter (NASC ET criteria). Left common carotid, carotid bifurcation, and internal carotid artery: Minimal calcified plaque at th e bifurcation.There is 0% stenosis of the proximal left internal carotid artery relative to normal di stal artery lumen diameter (NASCET criteria). Vertebral arteries: No significant plaque or stenosis. Right vertebral artery is dominant, Other findings: None. IMPRESSION: Chronic right sphenoid sinusitis with areas of adjacent osseous dehiscence and soft tissue thickening along the posterior medial orbit and orbital apex that may represent extension of inflammatory corbin e/phlegmon. Consider MRI of the sinuses without and with contrast for further evaluation. Severe short segment stenoses involving the left cavernous carotid and distal end of the left intracr anial internal carotid artery. No large vessel intracranial occlusion or aneurysm. No extracranial carotid or vertebral artery occlusion, dissection, or significant stenosis. Reviewed, dictated and finalized at location K. IMPRESSION: Chronic right sphenoid sinusitis with areas of adjacent osseous dehiscence and soft tissue thickening along the posterior medial orbit and orbital apex that m ay represent extension of inflammatory change/phlegmon. Consider MRI of the sin uses without and with contrast for further evaluation. Severe short segment stenoses involving the left cavernous carotid and distal e nd of the left intracranial internal carotid artery. No large vessel intracrani al occlusion or aneurysm. No extracranial carotid or vertebral artery occlusion, dissection, or significa nt stenosis.
[2024-01-25 17:56] VITALS: BP 123/84; PULSE 107; RESP 18; TEMP 36.4; O2SAT 100
[2024-01-25 18:10] LABS: Glucose Point of Care 109 mg/dl (65-105)
--- NOTE | 2024-01-25 18:55 | ECG_ITS ---
Test Date: 2024-01-25 19:15:20 Measurements Intervals [place] Rate: 97 P: 62 [place]: 163 QRS: 245 QRSD: 174 T: 48 QT: 415 QTc: 529 Interpretive Statements ELECTRONIC VENTRICULAR PACEMAKER Compared to ECG 01/24/2024 14:37:09 NO SIGNIFICANT CHANGES Electronically Signed On 01-26-2024 12:02:31 CDT by Nitin Rey M.D.
[2024-01-25 18:59] LABS: Glucose Point of Care 70 mg/dl (65-105)
[2024-01-25] MEDS: DEXTROSE 50% 25 GM/50 ML SYRINGE IV PUSH ×2 (19:09→22:27)
[2024-01-25 19:11] VITALS: BP 102/73; PULSE 113; RESP 19; O2SAT 100
[2024-01-25 20:06] LABS: Basophils Percent Auto 0.2 % (0.2-1.2); Eosinophils Absolute Auto 0.1 K/mm3 (0-0.3); Eosinophils Percent Auto 0.5 % (0-4.4); Hematocrit 37.2 % (42.0-52.0); Hemoglobin 11.9 g/dL (14.0-18.0); Immature Granulocyte Absolute 0.09 K/mm3 (0.00-0.031); Immature Granulocyte Percent A 0.7 % (0-0.5); Lymphocytes Absolute Auto 0.75 K/mm3 (0.9-3.2); Lymphocytes Percent Auto 6.1 % (18.3-44.2); Mean Corpuscular Hemoglobin 28.1 pg (26-34); Mean Corpuscular Volume 87.9 fl (80-100); Mean Platelet Volume 11.4 fl (7.4-10.4); Monocytes Absolute Auto 0.6 K/mm3 (0.1-0.6); Monocytes Percent Auto 4.9 % (2.6-8.5); Neutrophils Absolute Auto 10.8 K/mm3 (1.3-6.7); Neutrophils Percent Auto 87.6 % (45.5-73.1); Platelet Count Result 242 k/mm3 (150-375); Red Blood Count 4.23 M/mm3 (4.6-6.20); Red Cell Distribution Width 17.5 % (11.5-14.5); White Blood Count 12.4 K/mm3 (4.5-10.0)
[2024-01-25 20:17] VITALS: BP 111/82; PULSE 95; RESP 18; O2SAT 100
[2024-01-25 20:19] LABS: Alanine Aminotransferase 10 U/L (6-50); Albumin Level 3.3 g/dL (3.5-5.1); Alkaline Phosphatase 141 U/L (38-126); Anion Gap 9 mmol/L (4-12); Aspartate Amino Transferase 17 U/L (17-59); Bilirubin,Total 0.4 mg/dL (0.2-1.3); Blood Urea Nitrogen 27 mg/dL (9-20); Calcium 8.8 mg/dL (8.4-10.2); Carbon Dioxide 15 mmol/L (22-30); Chloride 105 mmol/L (98-107); Estimated CRCL calculation 44 ml/min; Estimated Glomerular Filt Rate 47; Glucose 161 mg/dL (65-110); Potassium 4.8 mmol/L (3.4-5.0); Sodium 129 mmol/L (137-145)
[2024-01-25 20:23] LABS: Glucose Point of Care 110 mg/dl (65-105)
[2024-01-25 20:34] LABS: Appearance Urine Cloudy (Clear); Bacteria Urine 4+ /hpf; Bilirubin Urine Negative (Negative); Blood Urine Negative (Negative); Color Urine Yellow (Yellow); Glucose Urine UA 2+ mg/dL (Negative); Hyaline Casts Urine Present /lpf; Ketones Urine Negative (Negative); Leukocyte Esterase Ur 1+ LEU/UL (Negative); Nitrate Urine Negative (Negative); Protein Urine 2+ mg/dL (Negative); RBC Urine 0-2 /hpf (0-2); Specific Grav Ur 1.031 (1.001-1.035); Squamous Epithelial Cell Urine None Seen /hpf (Few); Urobilinogen Urine 0.2 mg/dL (<2.0); WBC Urine 21-50 /hpf (0-3); pH Urine 5.5 (5.0-9.0)
[2024-01-25 20:35] LABS: Add Urine Microscopic? YES
--- NOTE | 2024-01-25 20:48 | ED.RECABL ---
HPI - Recheck/Abnormal Lab/Rx General Chief Complaint: Recheck/Abnormal Lab/Rx <Alaina Sarabia MD - Last Filed: 01/26/24 00:29> Stated Complaint: Low BG <Alaina Sarabia MD - Last Filed: 01/26/24 00:29> Time Seen by Provider: 01/25/24 18:47 <Alaina Sarabia MD - Last Filed: 01/26/24 00:29> Source: patient, family, EMS, RN notes reviewed and old records reviewed <Alaina Sarabia MD - Last Filed: 01/26/24 00:29> Mode of arrival: EMS <Alaina Sarabia MD - Last Filed: 01/26/24 00:29> Limitations: clinical condition <Alaina Sarabia MD - Last Filed: 01/26/24 00:29> History of Present Illness HPI narrative: This is a 68 year old male with history of diabetes mellitus, chronic kidney disease, chronic sinusitis who presents for evaluation of low blood sugar. PAtient's states tonight patient would not respond to her and he was diaphoretic. His blood sugar was 40 . EMS gave patient D10 and he regained responsiveness. PAtient was evaluated for same symptoms yesterday in [place] [facility]. His states that he has been having slurred speech and speech difficulty for at least 48 hours. He states he does not want to eat but he is still taking his diabetes medication. His reports he is having diarrhea. PAtient denies abdominal pain, nausea, vomiting, chest pain or shortness of breath. Patient has sinusitis surgery 2 months ago and he developed blindness afterwards. [facility] was [facility] for his vision change. His states he has appointment with neuroophthalmologist next month. CT possible small fluid collection but per note there is no intervention needed. <Alaina Sarabia MD - Last Filed: 01/26/24 00:29> Related Data Home Medications: Home Medications Medication Instructions Recorded Confirmed aspirin 81 mg tablet 81 mg PO DAILY 10/13/22 11/16/23 cholecalciferol (vitamin D3) 250 10,000 unit PO DAILY 10/13/22 11/16/23 mcg (10,000 unit) capsule furosemide 20 mg tablet 20 mg PO DAILY 10/13/22 11/16/23 gabapentin 300 mg capsule 300 mg PO BID 10/13/22 11/16/23 glipizide 5 mg tablet 5 mg PO BID 10/13/22 11/16/23 loratadine 10 mg tablet 10 mg PO DAILY 10/13/22 11/16/23 metoprolol succinate 100 mg 100 mg PO DAILY 10/13/22 11/16/23 tablet,extended release 24 hr mirtazapine 15 mg tablet 15 mg PO HS 10/13/22 11/16/23 montelukast 10 mg tablet 10 mg PO HS 10/13/22 11/16/23 naproxen 500 mg tablet 500 mg PO BID PRN Neuropathy 10/13/22 11/16/23 niacin 500 mg tablet 500 mg PO DAILY 10/13/22 11/16/23 omega 0-amo-ers-fish oil 300 1 cap PO DAILY 10/13/22 11/16/23 mg-1,000 mg capsule (Fish Oil) omeprazole 40 mg capsule,delayed 40 mg PO DAILY 10/13/22 11/16/23 release sacubitril 24 mg-valsartan 26 mg 1 tablet PO BID 10/13/22 11/16/23 tablet simvastatin 20 mg tablet 20 mg PO DAILY 10/13/22 11/16/23 spironolactone 25 mg tablet 25 mg PO DAILY 10/13/22 11/16/23 empagliflozin 25 mg tablet 25 mg PO DAILY 11/05/23 11/16/23 (Jardiance) linagliptin 5 mg tablet (Tradjenta) 5 mg PO DAILY 11/05/23 11/16/23 topiramate 25 mg tablet 25 mg PO DAILY 11/05/23 11/16/23 <Alaina Sarabia MD - Last Filed: 01/26/24 00:29> Allergies/Adverse Reactions: Allergies Allergy/AdvReac Type Severity Reaction Status Date / Time Penicillins Allergy Intermediate Unknown Verified 01/24/24 15:30 <Alaina Sarabia MD - Last Filed: 01/26/24 00:29> Review of Systems Constitutional: Constitutional: Denies weakness <Alaina Sarabia MD - Last Filed: 01/26/24 00:29> Cardiovascular: Cardiovascular: Denies syncope, Denies rapid heart rate, Denies irregular heart rhythm, Denies leg edema and Denies dyspnea <Alaina Sarabia MD - Last Filed: 01/26/24 00:29> Respiratory: Respiratory: Denies chest congestion, Denies hemoptysis, Denies excessive phlegm production and Denies dyspnea <Alaina Sarabia MD - Last Filed: 01/26/24 00:29> Gastrointestinal: Gastrointestinal: Denies abd
[2024-01-25] MEDS: SODIUM CHLORIDE 0.9% IV 1,000 ML 999 ML IV CONT ×2 (21:01→22:40)
[2024-01-25 21:25] LABS: Fractional Inspired Oxygen 21 %; HCO3 VBG 15.3 mEq/l (24.0-30.0); PO2 VBG 48.5 mmHg (35.0-45.0); pH VBG 7.328 (7.300-7.400)
[2024-01-25 21:27] LABS: Device ROOM AIR; PCO2 VBG 29.9 mmHg (42.0-48.0)
[2024-01-25 21:29] LABS: Lactic Acid Reflex 1.2 mmol/L (0.7-2.0)
[2024-01-25 22:21] VITALS: BP 108/69; PULSE 97; RESP 16; O2SAT 100
[2024-01-25 22:27] LABS: Glucose Point of Care 38 mg/dl (65-105)
--- NOTE | 2024-01-25 22:39 | PC.NURSE ---
Patient's pressure now reading 82/62. Notified EDP Dr. Sarabia who VRBO 1L NS bolus.
[2024-01-25] MEDS: DEXTROSE 10% 1,000 ML 50 ML IV CONT (22:44)
[2024-01-25 22:51] LABS: Glucose Point of Care 90 mg/dl (65-105)
[2024-01-25 23:20] VITALS: BP 116/81; PULSE 97; RESP 16; O2SAT 100
[2024-01-26] VITALS (64 sets, daily range): BP systolic 100–175; BP diastolic 59–130; PULSE 99–199; RESP 12–32; TEMP 36.7; O2SAT 96–100
[2024-01-26] LABS: Glucose Point of Care 74 mg/dl (65-105)
[2024-01-26] MEDS: DEXTROSE 50% 25 GM/50 ML SYRINGE IV PUSH ×2 (00:01→04:17)
[2024-01-26 00:23] LABS: Glucose Point of Care 133 mg/dl (65-105)
[2024-01-26] MEDS: VANCOMYCIN 1,500 MG/NS 500 ML 1,500 MG/500 ML BAG 250 MG IVPB (01:25)
[2024-01-26 02:23] LABS: Glucose Point of Care 94 mg/dl (65-105)
[2024-01-26 04:13] LABS: Glucose Point of Care 73 mg/dl (65-105)
--- NOTE | 2024-01-26 04:22 | PC.NURSE ---
Patient's blood glucose POC was 73. Notified EDP Dr. Green who advised to give the PRN 12.5mg of Dextrose 50 IVP
[2024-01-26 04:55] LABS: Glucose Point of Care 101 mg/dl (65-105)
[2024-01-26 06:08] LABS: Estimated CRCL calculation 64 ml/min; Estimated Glomerular Filt Rate > 60
[2024-01-26 06:35] LABS: Glucose Point of Care 88 mg/dl (65-105)
[2024-01-26 11:04] LABS: Glucose Point of Care 124 mg/dl (65-105)
[2024-01-26 12:26] LABS: Basophils Percent Auto 0.1 % (0.2-1.2); Eosinophils Percent Auto 0.3 % (0-4.4); Hematocrit 32.6 % (42.0-52.0); Hemoglobin 10.5 g/dL (14.0-18.0); Immature Granulocyte Absolute 0.06 K/mm3 (0.00-0.031); Immature Granulocyte Percent A 0.5 % (0-0.5); Mean Corpuscular HGB Conc 32.2 g/dl (32-36); Mean Corpuscular Volume 86.9 fl (80-100); Monocytes Absolute Auto 0.6 K/mm3 (0.1-0.6); Monocytes Percent Auto 5.3 % (2.6-8.5); Neutrophils Absolute Auto 10.3 K/mm3 (1.3-6.7); Neutrophils Percent Auto 87.8 % (45.5-73.1); Platelet Count Result 226 k/mm3 (150-375); Red Blood Count 3.75 M/mm3 (4.6-6.20); Red Cell Distribution Width 17.3 % (11.5-14.5); White Blood Count 11.7 K/mm3 (4.5-10.0)
[2024-01-26 12:43] LABS: Anion Gap 9 mmol/L (4-12); Blood Urea Nitrogen 19 mg/dL (9-20); Calcium 8.3 mg/dL (8.4-10.2); Carbon Dioxide 14 mmol/L (22-30); Chloride 104 mmol/L (98-107); Estimated CRCL calculation 59 ml/min; Estimated Glomerular Filt Rate > 60; Glucose 288 mg/dL (65-110); Potassium 4.5 mmol/L (3.4-5.0); Sodium 127 mmol/L (137-145)
--- NOTE | 2024-01-26 13:05 | PC.NURSE ---
Pt blood glucose results came back in blood work as 288. made aware. Dr. Lantigua VORB to stop D10 infusion and continue with Q2H accuchecks.
--- NOTE | 2024-01-26 13:07 | PC.NURSE ---
Pt returned to bedside. 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 She states that since his loss of sight, he has been on a decline, not eating well/loss of appetite. She states slurred speech is new as well and she can't take care of him at home in the state he's in. She reports a f/u apt at [facility] February 28 but could not wait with his condition deteriorating.
--- NOTE | 2024-01-26 13:57 | PC.NURSE ---
pt remains on waitlist for pt bed
[2024-01-26 15:03] LABS: Glucose Point of Care 107 mg/dl (65-105)
[2024-01-26 16:13] LABS: Glucose Point of Care 121 mg/dl (65-105)
[2024-01-26 17:37] LABS: Glucose Point of Care 111 mg/dl (65-105)
--- NOTE | 2024-01-26 17:40 | PC.NURSE ---
Lea with [facility] called to ask about patient condition. She states [facility] is still at capacity but will call to continue to check on him each shift and when they have bed available.
[2024-01-26] MEDS: VANCOMYCIN 1,250 MG/NS 250 ML 1,250 MG/250 ML BAG 125 MG IVPB (19:19)
--- NOTE | 2024-01-26 19:26 | PC.NURSE ---
Pt becoming more agitated with staff during assist to change underwear and linen after episode of urine incontinence. Pt very resistant, attempting to grab at staff and yelling profanity. After depend applied, pt covered with clean linen and lights dimmed to encourage rest. Pt resting quietly when finished.
[2024-01-26 19:28] LABS: Glucose Point of Care 98 mg/dl (65-105)
[2024-01-26] MEDS: LORazepam INJ (*CRX) 2 MG/ML VIAL 1 MG IV PUSH (20:15)
[2024-01-26] MEDS: HALOPERIDOL LACTATE 5 MG/ML VIAL 2.5 MG IV PUSH (20:30)
[2024-01-26 21:37] LABS: Glucose Point of Care 119 mg/dl (65-105)
--- NOTE | 2024-01-26 22:22 | PC.NURSE ---
Interrogated pt pacemaker. Pt woke up yelling, swinging. Staff came to assist this RN. De-escalation techniques used. Pt repositioned in bed, once intervention was complete pt went back to resting.
[2024-01-26] MEDS: diphenhydrAMINE HCl INJ 50 MG/ML VIAL 12.5 MG IV PUSH (23:03)
[2024-01-26 23:17] LABS: Glucose Point of Care 114 mg/dl (65-105)
[2024-01-27] VITALS (58 sets, daily range): BP systolic 96–172; BP diastolic 57–100; PULSE 97–181; RESP 12–28; TEMP 36.6–38.2; O2SAT 96–100
--- NOTE | 2024-01-27 00:08 | PC.NURSE ---
haldol and ativan wasted in pyxis. pt dose not required yet.
[2024-01-27 01:21] LABS: Glucose Point of Care 137 mg/dl (65-105)
[2024-01-27 03:45] LABS: Glucose Point of Care 113 mg/dl (65-105)
--- NOTE | 2024-01-27 04:42 | PC.NURSE ---
Pt depend changed, and pt moved from recliner to hospital bed via lift. No distress noted.
[2024-01-27 05:53] LABS: Glucose Point of Care 132 mg/dl (65-105)
[2024-01-27 06:38] LABS: Estimated CRCL calculation 59 ml/min; Estimated Glomerular Filt Rate > 60
--- NOTE | 2024-01-27 07:37 | ECG_ITS ---
Test Date: 2024-01-27 07:40:31 Measurements Intervals [place] Rate: 116 P: 86 IA: 155 QRS: 243 QRSD: 170 T: 55 QT: 365 QTc: 507 Interpretive Statements ELECTRONIC VENTRICULAR PACEMAKER ATYPICAL ECG Compared to ECG 01/25/2024 19:15:20 No significant changes Electronically Signed On 01-28-2024 15:03:53 CDT by Markie Agustin M.D.
[2024-01-27 07:40] LABS: Glucose Point of Care 123 mg/dl (65-105)
--- NOTE | 2024-01-27 07:43 | PC.NURSE ---
Patient cleaned by this RN and night RN and placed in dry gown, air mattress, and brief.
[2024-01-27] MEDS: LORazepam INJ (*CRX) 2 MG/ML VIAL 1 MG IM (08:10)
[2024-01-27] MEDS: SODIUM CHLORIDE 0.9% IV 1,000 ML 999 ML IV CONT (08:37)
[2024-01-27 08:46] LABS: Basophils Percent Auto 0.2 % (0.2-1.2); Eosinophils Percent Auto 0.1 % (0-4.4); Hematocrit 33.8 % (42.0-52.0); Hemoglobin 10.5 g/dL (14.0-18.0); Immature Granulocyte Absolute 0.09 K/mm3 (0.00-0.031); Immature Granulocyte Percent A 0.7 % (0-0.5); Lymphocytes Absolute Auto 1.11 K/mm3 (0.9-3.2); Lymphocytes Percent Auto 8.3 % (18.3-44.2); Mean Corpuscular HGB Conc 31.1 g/dl (32-36); Mean Corpuscular Hemoglobin 27.5 pg (26-34); Mean Corpuscular Volume 88.5 fl (80-100); Monocytes Percent Auto 7.6 % (2.6-8.5); Neutrophils Absolute Auto 11.1 K/mm3 (1.3-6.7); Neutrophils Percent Auto 83.1 % (45.5-73.1); Platelet Count Result 224 k/mm3 (150-375); Red Blood Count 3.82 M/mm3 (4.6-6.20); Red Cell Distribution Width 17.2 % (11.5-14.5); White Blood Count 13.4 K/mm3 (4.5-10.0)
[2024-01-27 09:00] LABS: Alanine Aminotransferase 11 U/L (6-50); Albumin Level 3.2 g/dL (3.5-5.1); Alkaline Phosphatase 137 U/L (38-126); Anion Gap 12 mmol/L (4-12); Aspartate Amino Transferase 21 U/L (17-59); Bilirubin,Total 0.6 mg/dL (0.2-1.3); Blood Urea Nitrogen 17 mg/dL (9-20); Calcium 8.8 mg/dL (8.4-10.2); Carbon Dioxide 15 mmol/L (22-30); Chloride 105 mmol/L (98-107); Estimated CRCL calculation 64 ml/min; Estimated Glomerular Filt Rate > 60; Glucose 113 mg/dL (65-110); Potassium 4.7 mmol/L (3.4-5.0); Sodium 132 mmol/L (137-145)
[2024-01-27] MEDS: LORazepam INJ (*CRX) 2 MG/ML VIAL 1 MG IV PUSH (10:00)
[2024-01-27] MEDS: cefTRIAXone 2 GM/NS 100 ML 2 GM/100 ML BAG IVPB (10:03)
[2024-01-27 10:12] LABS: Glucose Point of Care 117 mg/dl (65-105)
[2024-01-27] MEDS: ACETAMINOPHEN 650 MG SUPPOSITORY RECTAL (10:39)
[2024-01-27 11:39] LABS: Glucose Point of Care 120 mg/dl (65-105)
--- NOTE | 2024-01-27 12:06 | PC.NURSE ---
Araseli w/Farzana at [facility] transfer center, no updates.
[2024-01-27] MEDS: VANCOMYCIN 1,250 MG/NS 250 ML 1,250 MG/250 ML BAG 125 MG IVPB (13:03)
[2024-01-27 13:05] LABS: Glucose Point of Care 110 mg/dl (65-105)
[2024-01-27 15:16] LABS: Glucose Point of Care 102 mg/dl (65-105)
[2024-01-27 17:07] LABS: Glucose Point of Care 116 mg/dl (65-105)
[2024-01-27] MEDS: SODIUM CHLORIDE 0.9% IV 1,000 ML 150 ML IV CONT (17:40)
[2024-01-27] MEDS: LORazepam INJ (*CRX) 2 MG/ML VIAL 0.5 MG IV PUSH ×2 (18:52→22:41)
[2024-01-27 18:56] LABS: Glucose Point of Care 104 mg/dl (65-105)
--- NOTE | 2024-01-27 20:55 | PC.NURSE ---
Patient sleeping at time of Ativan IVP. Notified EDP Dr. Green who advised to hold off on the Ativan.
[2024-01-27 21:57] LABS: Glucose Point of Care 103 mg/dl (65-105)
--- NOTE | 2024-01-27 22:47 | PC.NURSE ---
Patient was removed from soft restraints as he was sleeping and not pulling at lines, IVs, or attempting to harm staff. After roughly ten minutes the patient was trying to pull lines and IVs. Nursing staff attempted to reorient patient and position back into the bed. Patient began to get violent with nursing staff and started hitting staff. Per EDP Dr. Green place soft restraints back on the patient and give 0.5mg Ativan IVP.
[2024-01-28 00:30] VITALS: BP 157/95; PULSE 108; RESP 20; O2SAT 100
[2024-01-28 00:43] VITALS: BP 143/66; PULSE 131; RESP 25; TEMP 36.6; O2SAT 99
[2024-01-28 01:29] VITALS: BP 162/103; PULSE 129; RESP 22; O2SAT 100
[2024-01-28 01:43] VITALS: BP 165/104; PULSE 122; RESP 19; TEMP 36.9; O2SAT 100
[2024-01-28 02:15] VITALS: BP 168/87; PULSE 115; RESP 13; O2SAT 99
[2024-01-28 02:33] LABS: Glucose Point of Care 114 mg/dl (65-105)
--- NOTE | 2024-01-28 02:48 | PC.NURSE ---
Patient's vitals at 0215 115bpm, 13RR, 97% SPO2 RA, and BP 168/87 At 0220 patient's sister arrives. Nursing staff greets visitor in room and sees patient's SPO2 is 70%. Patient also making rhonci breathing noises. EDP Dr. Green notified. EDP Dr. Green assess patient and request that be called upon patients behalf. Nursing staff continues to assess patient and weak radial pules are felt. SPO2 down to 60%-70%. At 0225 nursing staff cannot palpate a radial pulse. At 022 ED CN and EDP Dr. Green speak with over telephone and the decision to make patient a DNR status is made. At 023 patient's new set of vitals 63bpm, 79%RA, 0 RR, and BP 96/21. EDP Dr. Green notified. At [address] Green assess cardiac activity with ultra sounds and states there is minimal activity.
--- NOTE | 2024-01-28 03:01 | PC.NURSE ---
At [address] Green asssess cardiac activity on patient and complete aystole noted on patient. At 0[address] TOD [address] Green
== END 2024-01-28 03:00 | disposition expired ==
PROVIDERS: Emergency Medicine; Emergency Provider General Practice; PCP Family Medicine
DX: E11.649 Type 2 diabetes mellitus with hypoglycemia without coma (principal); J32.9 Chronic sinusitis, unspecified; E87.1 Hypo-osmolality and hyponatremia; R41.0 Disorientation, unspecified; E11.22 Type 2 diabetes mellitus with diabetic chronic kidney disease; I12.9 Hypertensive chronic kidney disease with stage 1 through stage 4 chronic kidney disease, or unspecified chronic kidney disease; N18.9 Chronic kidney disease, unspecified; I42.8 Other cardiomyopathies; E78.5 Hyperlipidemia, unspecified; G47.33 Obstructive sleep apnea (adult) (pediatric); F17.290 Nicotine dependence, other tobacco product, uncomplicated; F17.220 Nicotine dependence, chewing tobacco, uncomplicated; Z95.0 Presence of cardiac pacemaker; Z79.84 Long term (current) use of oral hypoglycemic drugs; Z79.82 Long term (current) use of aspirin; Z79.899 Other long term (current) drug therapy
CPT/HCPCS: 36415; 70496; 70498; 80048; 80053; 81001; 82565; 82803; 82948; 83605; 85025; 87040; 87077; 87086; 87088; 87186; 93005; 96361; 96365; 96366; 96367; 96375; 96376; 99285; A9270; J0696; J1200; J1630; J2060; J3370; J7030; Q9967